=== PATIENT | female | born 1955 | race Caucasian/White ===

== ENCOUNTER → 2017-02-03 | Outpatient (CLI) | payer BC ==
[~2017-02-03] MED LIST: ALBU18HF INH; AMIO200T PO; AMIO200T42 PO; AMIT50TA PO; APIX5TAB PO; ASPI1TAB2 PO; ASPI1TAB30 PO; ASPI325T4 PO; BENA20TA2 PO; CLOT15CR6 TP; DIGO125T PO; DIGO250T PO; DILT180C53 PO; DOCU-30 PO; ESTR1TAB15 PO; FLUT16SP NAS; FLUT1DIS3 INH; FLUT9.9S NAS; FURO-92 PO; FURO40TA6 PO; HYDR-3138 PO; HYDR-3240 PO; IBUP200T64 PO; METO25TA35 PO; METO50TA82 PO; METR500T PO; MULT-6 PO; NITR0.4T SL; OMEP-110 PO; POTA10TA11 PO; POTA20TA14 PO; PRAV40TA2 PO; THEO600T PO; WARF2.5T73 PO; WARF5TAB7 PO
== END | disposition home or self-care (01) ==
LOC: RAD 10:12
PROVIDERS: ATTEND Internal Medicine Cardiovascular Disease
DX: Z95.0 Presence of cardiac pacemaker (principal)
CPT/HCPCS: 71020

== ENCOUNTER → 2017-09-02 | Outpatient (CLI) | payer BC ==
[~2017-09-02] MED LIST changes: +ASPI-691 PO; -ASPI1TAB2 PO; -ASPI1TAB30 PO; +ASPI1TAB31 PO; +ASPI325T17 PO; -ASPI325T4 PO; +DOCU-131 PO; -DOCU-30 PO; -HYDR-3138 PO; +HYDR-3237 PO; +REGADENOSON 0.4 MG/5 ML SYRINGE ONE
== END | disposition home or self-care (01) ==
LOC: CFH 12:36
PROVIDERS: ATTEND Physician Assistant Medical
DX: I25.5 Ischemic cardiomyopathy (principal); I10 Essential (primary) hypertension; I25.10 Atherosclerotic heart disease of native coronary artery without angina pectoris; J45.909 Unspecified asthma, uncomplicated; Z95.5 Presence of coronary angioplasty implant and graft
CPT/HCPCS: 78452; 93017; A9502; J2785

== ENCOUNTER 2017-09-06 10:03 | Day surgery (SDC) | payer BC ==
[~2017-09-06] VITALS: Ht 177.8 cm; Wt 82.0 kg
[~2017-09-06 10:03] MED LIST changes: -REGADENOSON 0.4 MG/5 ML SYRINGE ONE
[2017-09-06] MEDS ORDERED: SODIUM CHLORIDE 0.9% 1,000 ML IV ONE (10:29)
[2017-09-06 10:47] VITALS: BP 114/59
[2017-09-06 10:48] LABS: HEMATOCRIT 39.2 % (34.6-47.8); HEMOGLOBIN 13.4 g/dL (11.7-16.4)
[2017-09-06 10:53] LABS: BLOOD UREA NITROGEN 16 mg/dL (7-18)
[2017-09-06] MEDS ORDERED: PLEASE ENTER HEIGHT AND WEIGHT MC SCH (11:00)
[2017-09-06] MEDS ORDERED: MIDAZOLAM 1 MG/ML, 5ML ONE (12:17)
[2017-09-06] MEDS ORDERED: TICAGRELOR 90 MG TABLET ONE (12:17)
[2017-09-06] MEDS ORDERED: VERAPAMIL 2.5 MG/ML, 2ML ONE (12:17)
[2017-09-06] MEDS ORDERED: NITROGLYCERIN 5 MG/ML, 10ML ONE (12:17)
[2017-09-06] MEDS ORDERED: FENTANYL PF 100 MCG/2ML ONE (12:17)
[2017-09-06] MEDS ORDERED: BIVALIRUDIN 250 MG ONE (12:18)
[2017-09-06] MEDS ORDERED: LIDOCAINE 2%, 20ML ONE (12:18)
[2017-09-06] MEDS ORDERED: HEPARIN 1,000 UNITS/ML, 10ML ONE (12:18)
[2017-09-06] MEDS ORDERED: SODIUM CHLORIDE 0.9% 1,000 ML IV SCH (14:02)
== END 2017-09-06 16:24 | disposition home or self-care (01) ==
LOC: CACL 10:03
PROVIDERS: ATTEND Internal Medicine Cardiovascular Disease
DX: I20.0 Unstable angina (principal); I10 Essential (primary) hypertension; Z91.030 Bee allergy status; Z91.018 Allergy to other foods
CPT/HCPCS: 36415; 80048; 85025; 93458; 99156; C1769; C1894; J1644; J2250; J3010; J3490; Q9967; J0583

== ENCOUNTER 2017-09-20 08:22 | Emergency (ER) | payer BC ==
[~2017-09-20] VITALS: Ht 177.8 cm; Wt 83.0 kg
[2017-09-20 09:46] LABS: HEMATOCRIT 39.6 % (34.6-47.8); HEMOGLOBIN 13.4 g/dL (11.7-16.4); WHITE BLOOD COUNT 7.5 x10^3/uL (3.4-10)
[2017-09-20 09:59] LABS: BLOOD UREA NITROGEN 23 mg/dL (7-18)
[2017-09-20 10:06] LABS: ASPARTATE AMINO TRANSFERASE 12 U/L (15-37)
[2017-09-20 10:07] LABS: IS PT STATUS REG ER OR PRE ER? YES
[2017-09-20] MEDS ORDERED: PROPOFOL 10 MG/ML, 20ML ONE (11:37)
[2017-09-20 12:56] VITALS: BP 110/46
[2017-09-20] MEDS ORDERED: PROPOFOL 10 MG/ML, 20ML IVPush ONE (13:00)
== END 2017-09-20 13:15 | disposition home or self-care (01) ==
LOC: ED 09:57
DX: I48.2 Chronic atrial fibrillation (principal); E03.9 Hypothyroidism, unspecified; Z95.0 Presence of cardiac pacemaker
CPT/HCPCS: 36415; 71010; 80053; 83735; 84484; 85025; 85610; 85730; 92960; 93005; 99152; 99153; 99285; J2704

== ENCOUNTER → 2018-04-03 | Outpatient (CLI) | payer OTHER ==
[~2018-04-03] MED LIST changes: +WARF-36 PO; -WARF5TAB7 PO
== END | disposition home or self-care (01) ==
LOC: CFH 09:56
PROVIDERS: ATTEND Physician Assistant
DX: M41.9 Scoliosis, unspecified (principal); R06.02 Shortness of breath
CPT/HCPCS: 71046

== ENCOUNTER → 2018-11-23 | Outpatient (CLI) | payer OTHER ==
[~2018-11-23] MED LIST changes: -BENA20TA2 PO; +BENA20TA54 PO; +WARF2.5T32 PO; -WARF2.5T73 PO
== END | disposition home or self-care (01) ==
LOC: CFH 12:57
PROVIDERS: ATTEND Nurse Practitioner
DX: I51.7 Cardiomegaly (principal); R91.8 Other nonspecific abnormal finding of lung field; I70.0 Atherosclerosis of aorta; M85.88 Other specified disorders of bone density and structure, other site; M47.816 Spondylosis without myelopathy or radiculopathy, lumbar region; M43.24 Fusion of spine, thoracic region; Z95.0 Presence of cardiac pacemaker
CPT/HCPCS: 71250

== ENCOUNTER 2019-01-16 08:46 | Inpatient (IN) | payer OTHER ==
[~2019-01-16] VITALS: Ht 177.8 cm; Wt 75.6 kg
[~2019-01-16 08:46] MED LIST changes: -ALBU8.5H8 INH; -ATOR40TA78 PO; -LEVO75TA5 PO
[2019-01-16] MEDS ORDERED: METOPROLOL 1 MG/ML, 5ML IVPush ONE (09:30)
[2019-01-16] MEDS ORDERED: SODIUM CHLORIDE FLUSH 10ML SYR IVF ONE (09:30)
[2019-01-16] MEDS ORDERED: METOPROLOL 1 MG/ML, 5ML ONE (09:40)
--- NOTE | 2019-01-16 09:46 | NUR ---
CXR AT THE BEDSIDE.
[2019-01-16 10:08] LABS: BASOPHILS # (AUTO) 0.05 x10^3/uL (0-0.1); BASOPHILS % (AUTO) 1 % (0-1); EOSINOPHILS # (AUTO) 0.78 x10^3/uL (0-0.4); EOSINOPHILS % (AUTO) 10 % (1-7); LYMPHOCYTES % (AUTO) 16 % (22-44); MD NO; MEAN CORPUSCULAR HEMOGLOBIN 27.7 pg (27.0-34.8); MEAN CORPUSCULAR HGB CONC 31.5 g/dL (32.4-35.8); MEAN CORPUSCULAR VOLUME 87.9 fL (80-100); MEAN PLATELET VOLUME 10.5 fL (7.4-10.4); MONOCYTES # (AUTO) 0.56 x10^3/uL (0.2-0.8); MONOCYTES % (AUTO) 7 % (2-9); NEUTROPHILS # (AUTO) 5.25 x10^3/uL (1.8-6.8); NEUTROPHILS % (AUTO) 66 % (42-75); PLATELET COUNT 175 x10^3/uL (130-400); RED BLOOD COUNT 4.59 x10^6/uL (3.82-5.3); RED CELL DISTRIBUTION WIDTH 15.3 % (9.6-15.2)
--- NOTE | 2019-01-16 10:08 | NUR ---
pt resting comfortably on an e.r. gurney while awaiting the results of diagnostic screening. vs are stable amidst beta hilary. i will contionue to monitor and treat as oredered, as well as prn while awaiting further orders.
[2019-01-16 10:25] LABS: ALBUMIN 3.8 g/dL (3.4-5.0); ANION GAP 8 mmol/L (5-15); CALCIUM 9.7 mg/dL (8.5-10.1); CHLORIDE 111 mmol/L (98-107)
[2019-01-16 10:27] LABS: ALANINE AMINOTRANSFERASE 66 U/L (12-78); CREATININE 1.42 mg/dL (0.55-1.02); TROPONIN I 0.051 ng/mL (0.000-0.045)
[2019-01-16 10:50] LABS: ALKALINE PHOSPHATASE 239 U/L (45-117); BILIRUBIN,TOTAL 0.8 mg/dL (0.2-1.0); TOTAL PROTEIN 6.9 g/dL (6.4-8.2)
[2019-01-16] MEDS ORDERED: FUROSEMIDE 40 MG/4 ML IV ONE (11:00)
--- NOTE | 2019-01-16 11:04 | NUR ---
verbal sbar report was exchanged w danny pandya) on the floor for admission. we will begin to prepare for transport at this time.
[2019-01-16 11:20] VITALS: BP 103/73
[2019-01-16 11:32] LABS: FREE T4 (FREE THYROXINE) 1.42 ng/dL (0.76-1.46)
[2019-01-16] MEDS ORDERED: ALBU8.5H8 INH (11:36)
[2019-01-16] MEDS ORDERED: DIGO125T PO (11:36)
[2019-01-16] MEDS ORDERED: ATOR40TA78 PO (11:36)
[2019-01-16] MEDS ORDERED: LEVO75TA5 PO (11:36)
[2019-01-16 12:30] VITALS: BP 102/68
[2019-01-16] MEDS ORDERED: LABETALOL 5MG/ML, 20ML IVPush PRN (14:00)
[2019-01-16] MEDS ORDERED: ASA/APAP/ CAFFEINE TABLET PO PRN (14:00)
[2019-01-16] MEDS ORDERED: NITROGLYCERIN 0.4 MG BOTTLE (25 TABS) SL PRN ×2 (14:00)
[2019-01-16] MEDS ORDERED: ACETAMINOPHEN 325 MG TABLET PO PRN (14:00)
[2019-01-16] MEDS ORDERED: DOCUSATE 100 MG CAPSULE PO PRN (14:00)
[2019-01-16] MEDS ORDERED: ALBUTEROL SULFATE 2.5 MG/3 ML HHN PRN (14:30)
[2019-01-16] MEDS ORDERED: HEPARIN 5,000 UNITS/ML, 1ML IV ONE (15:00)
[2019-01-16] MEDS ORDERED: ALBUTEROL SULFATE 2.5 MG/3 ML NPPB PRN (15:00)
[2019-01-16] MEDS ORDERED: HEPARIN 5,000 UNITS/ML, 1ML IV PRN (15:00)
[2019-01-16 15:09] LABS: TROPONIN I 0.057 ng/mL (0.000-0.045)
[2019-01-16 15:45] VITALS: BP_SYST 93; BP_SYST 96; BP_DIAS 68; BP_DIAS 71
[2019-01-16] MEDS: FUROSEMIDE 20 MG/2 ML IV SCH (16:07)
[2019-01-16] MEDS ORDERED: FUROSEMIDE 40 MG/4 ML IV SCH (17:00)
[2019-01-16 18:04] VITALS: BP 97/67
[2019-01-16] MEDS: HEPARIN 25,000 UNITS/500ML PMX 500 ML IV PRN (18:25)
[2019-01-16 20:06] VITALS: BP 100/55
[2019-01-16 20:06] LABS: TROPONIN I 0.057 ng/mL (0.000-0.045)
[2019-01-16] MEDS: CLOTRIM/BETAMETH 1%/0.05% CRM TP SCH (21:00)
[2019-01-16] MEDS ORDERED: APIXABAN 5 MG TABLET PO SCH (21:00)
[2019-01-16] MEDS ORDERED: ONDANSETRON ODT 4 MG PO ONE (21:00)
[2019-01-16] MEDS ORDERED: METOPROLOL TARTRATE 25 MG TABLET PO SCH (21:00)
[2019-01-16] MEDS: ATORVASTATIN 40 MG TABLET PO SCH (21:03)
[2019-01-16] MEDS: AMITRIPTYLINE 50 MG TABLET PO SCH (21:03)
[2019-01-17 00:36] VITALS: BP 155/80
[2019-01-17 00:39] VITALS: BP 116/79
[2019-01-17 01:59] LABS: TROPONIN I 0.046 ng/mL (0.000-0.045)
[2019-01-17 05:29] LABS: MEAN CORPUSCULAR HEMOGLOBIN 28.8 pg (27.0-34.8); MEAN CORPUSCULAR HGB CONC 33.2 g/dL (32.4-35.8); MEAN CORPUSCULAR VOLUME 86.8 fL (80-100); MEAN PLATELET VOLUME 10.1 fL (7.4-10.4); PLATELET COUNT 148 x10^3/uL (130-400); RED CELL DISTRIBUTION WIDTH 15.4 % (9.6-15.2)
[2019-01-17 05:32] LABS: ALBUMIN 3.1 g/dL (3.4-5.0); ANION GAP 8 mmol/L (5-15); CALCIUM 8.5 mg/dL (8.5-10.1); CHLORIDE 112 mmol/L (98-107)
[2019-01-17 05:35] LABS: ALANINE AMINOTRANSFERASE 48 U/L (12-78); ALKALINE PHOSPHATASE 187 U/L (45-117); BILIRUBIN,TOTAL 0.8 mg/dL (0.2-1.0); CREATININE 1.08 mg/dL (0.55-1.02); TOTAL PROTEIN 5.7 g/dL (6.4-8.2)
[2019-01-17] MEDS: LEVOTHYROXINE 100 MCG TABLET PO SCH (05:43)
[2019-01-17 07:10] VITALS: BP 98/55
[2019-01-17] MEDS: CARVEDILOL 6.25 MG TABLET PO SCH ×2 (07:30→17:35)
[2019-01-17 07:44] LABS: BASOPHILS # (AUTO) 0.07 x10^3/uL (0-0.1); BASOPHILS % (AUTO) 1 % (0-1); EOSINOPHILS # (AUTO) 0.92 x10^3/uL (0-0.4); EOSINOPHILS % (AUTO) 16 % (1-7); LYMPHOCYTES % (AUTO) 25 % (22-44); MD SCAN; MONOCYTES % (AUTO) 9 % (2-9); NEUTROPHILS # (AUTO) 2.96 x10^3/uL (1.8-6.8); NEUTROPHILS % (AUTO) 50 % (42-75)
[2019-01-17] MEDS: FLUTICASONE NASAL SPRAY 16GM NAS SCH (08:40)
[2019-01-17] MEDS: MULTIVITAMIN 1 TABLET PO SCH (08:40)
[2019-01-17] MEDS: OMEPRAZOLE 20 MG CAPSULE.DR PO SCH (08:40)
[2019-01-17] MEDS: FUROSEMIDE 20 MG/2 ML IV SCH ×2 (08:40→17:36)
[2019-01-17] MEDS: CLOTRIM/BETAMETH 1%/0.05% CRM TP SCH ×2 (08:41→23:24)
[2019-01-17] MEDS ORDERED: DIGOXIN 0.125 MG TABLET PO SCH (09:00)
[2019-01-17 12:12] VITALS: BP 100/60
[2019-01-17] MEDS ORDERED: DIGOXIN 0.25 MG/ML, 2ML IVPush ONE (13:30)
[2019-01-17] MEDS: POTASSIUM CHLORIDE 20 MEQ TAB.ER.PRT PO SCH (17:35)
[2019-01-17 17:39] VITALS: BP 102/61
[2019-01-17 20:16] VITALS: BP 98/52
[2019-01-17] MEDS: ATORVASTATIN 40 MG TABLET PO SCH (23:25)
[2019-01-17] MEDS: AMITRIPTYLINE 50 MG TABLET PO SCH (23:26)
[2019-01-18] VITALS (7 sets, daily range): BP systolic 97–117; BP diastolic 50–78
[2019-01-18 05:22] LABS: ALANINE AMINOTRANSFERASE 45 U/L (12-78); ALBUMIN 3.1 g/dL (3.4-5.0); ANION GAP 6 mmol/L (5-15); CALCIUM 8.8 mg/dL (8.5-10.1); CHLORIDE 112 mmol/L (98-107)
[2019-01-18 05:25] LABS: ALKALINE PHOSPHATASE 188 U/L (45-117); BILIRUBIN,TOTAL 0.9 mg/dL (0.2-1.0); CREATININE 1.23 mg/dL (0.55-1.02); TOTAL PROTEIN 5.8 g/dL (6.4-8.2)
[2019-01-18] MEDS ORDERED: SODIUM CHLORIDE 0.9% 1,000 ML IV SCH (06:00)
[2019-01-18] MEDS: LEVOTHYROXINE 100 MCG TABLET PO SCH (07:01)
[2019-01-18] MEDS: CARVEDILOL 6.25 MG TABLET PO SCH (07:01)
[2019-01-18] MEDS: POTASSIUM CHLORIDE 20 MEQ TAB.ER.PRT PO SCH ×2 (08:01→18:13)
[2019-01-18] MEDS: FUROSEMIDE 20 MG/2 ML IV SCH ×2 (08:01→18:14)
[2019-01-18] MEDS: MULTIVITAMIN 1 TABLET PO SCH (08:44)
[2019-01-18] MEDS: OMEPRAZOLE 20 MG CAPSULE.DR PO SCH (08:44)
[2019-01-18] MEDS: DIGOXIN 0.25 MG TABLET PO SCH (08:44)
[2019-01-18] MEDS: CLOTRIM/BETAMETH 1%/0.05% CRM TP SCH ×2 (08:45→20:11)
[2019-01-18] MEDS: FLUTICASONE NASAL SPRAY 16GM NAS SCH (08:45)
[2019-01-18] MEDS ORDERED: BIVALIRUDIN 250 MG ONE (14:33)
[2019-01-18] MEDS ORDERED: MIDAZOLAM 1 MG/ML, 5ML ONE (14:33)
[2019-01-18] MEDS ORDERED: FENTANYL PF 100 MCG/2ML ONE (14:33)
[2019-01-18] MEDS ORDERED: VERAPAMIL 2.5 MG/ML, 2ML ONE (14:33)
[2019-01-18] MEDS ORDERED: TICAGRELOR 90 MG TABLET ONE (14:33)
[2019-01-18] MEDS ORDERED: LIDOCAINE 2%, 20ML ONE (14:33)
[2019-01-18] MEDS ORDERED: methylPREDNISolone SOD SUCC 125 MG/2 ML ONE (14:34)
[2019-01-18] MEDS ORDERED: DIPHENHYDRAMINE 50 MG/ML, 1ML ONE (14:34)
[2019-01-18] MEDS: CARVEDILOL 12.5 MG TABLET PO SCH (18:13)
[2019-01-18] MEDS: AMITRIPTYLINE 50 MG TABLET PO SCH (20:10)
[2019-01-18] MEDS: ATORVASTATIN 40 MG TABLET PO SCH (20:10)
[2019-01-18] MEDS: HEPARIN 25,000 UNITS/500ML PMX 500 ML IV PRN (21:39)
[2019-01-19 00:55] VITALS: BP 100/59
[2019-01-19 04:02] LABS: ALBUMIN 3.1 g/dL (3.4-5.0); ANION GAP 6 mmol/L (5-15); CHLORIDE 114 mmol/L (98-107); CREATININE 1.14 mg/dL (0.55-1.02)
[2019-01-19 04:06] LABS: ALANINE AMINOTRANSFERASE 40 U/L (12-78); ALKALINE PHOSPHATASE 178 U/L (45-117); BILIRUBIN,TOTAL 0.6 mg/dL (0.2-1.0); TOTAL PROTEIN 5.6 g/dL (6.4-8.2)
[2019-01-19] MEDS: SODIUM CHLORIDE 0.9% 1,000 ML IV SCH (05:54)
[2019-01-19] MEDS: LEVOTHYROXINE 100 MCG TABLET PO SCH (05:55)
[2019-01-19] MEDS: CARVEDILOL 12.5 MG TABLET PO SCH (05:56)
[2019-01-19] MEDS: CLOTRIM/BETAMETH 1%/0.05% CRM TP SCH ×2 (08:11→22:07)
[2019-01-19] MEDS: FLUTICASONE NASAL SPRAY 16GM NAS SCH (08:11)
[2019-01-19] MEDS: FUROSEMIDE 20 MG/2 ML IV SCH ×2 (08:18→17:18)
[2019-01-19] MEDS: OMEPRAZOLE 20 MG CAPSULE.DR PO SCH (08:19)
[2019-01-19 08:50] VITALS: BP_SYST 104; BP_SYST 184; BP_DIAS 67; BP_DIAS 74
[2019-01-19] MEDS ORDERED: FENTANYL PF 250 MCG/5ML ONE (10:28)
[2019-01-19] MEDS ORDERED: MIDAZOLAM 1 MG/ML, 5ML ONE (10:28)
[2019-01-19] MEDS ORDERED: ACETAMINOPHEN 325 MG TABLET PO PRN (12:00)
[2019-01-19] MEDS: MULTIVITAMIN 1 TABLET PO SCH (12:36)
[2019-01-19] MEDS: SPIRONOLACTONE 25 MG TABLET PO SCH (12:36)
[2019-01-19] MEDS: POTASSIUM CHLORIDE 20 MEQ TAB.ER.PRT PO SCH ×2 (12:36→17:18)
[2019-01-19] MEDS: DIGOXIN 0.25 MG TABLET PO SCH (12:37)
[2019-01-19 13:50] VITALS: BP 101/63
[2019-01-19] MEDS ORDERED: HEPARIN 25,000 UNITS/500ML PMX 500 ML IV PRN (14:00)
[2019-01-19] MEDS: LISINOPRIL 5 MG TABLET PO SCH (14:45)
[2019-01-19 17:50] VITALS: BP 113/74
[2019-01-19] MEDS: CARVEDILOL 6.25 MG TABLET PO SCH (17:54)
[2019-01-19] MEDS: APIXABAN 5 MG TABLET PO SCH (22:06)
[2019-01-19] MEDS: ATORVASTATIN 40 MG TABLET PO SCH (22:07)
[2019-01-19] MEDS: AMITRIPTYLINE 50 MG TABLET PO SCH (22:07)
[2019-01-19 22:12] VITALS: BP 96/58
[2019-01-20 01:12] VITALS: BP 98/60
[2019-01-20] MEDS: SODIUM CHLORIDE 0.9% 1,000 ML IV SCH (01:24)
[2019-01-20 05:20] LABS: ALBUMIN 3.2 g/dL (3.4-5.0); CHLORIDE 110 mmol/L (98-107)
[2019-01-20 05:25] LABS: ALANINE AMINOTRANSFERASE 37 U/L (12-78); ALKALINE PHOSPHATASE 165 U/L (45-117); ANION GAP 7 mmol/L (5-15); BILIRUBIN,TOTAL 1.1 mg/dL (0.2-1.0); CREATININE 1.05 mg/dL (0.55-1.02); TOTAL PROTEIN 5.5 g/dL (6.4-8.2)
[2019-01-20 06:41] VITALS: BP 98/63
[2019-01-20] MEDS: LEVOTHYROXINE 100 MCG TABLET PO SCH (06:42)
[2019-01-20] MEDS: CARVEDILOL 6.25 MG TABLET PO SCH (06:42)
[2019-01-20] MEDS: FLUTICASONE NASAL SPRAY 16GM NAS SCH (08:25)
[2019-01-20] MEDS: APIXABAN 5 MG TABLET PO SCH (08:26)
[2019-01-20] MEDS: SPIRONOLACTONE 25 MG TABLET PO SCH (08:26)
[2019-01-20] MEDS: MULTIVITAMIN 1 TABLET PO SCH (08:26)
[2019-01-20] MEDS: OMEPRAZOLE 20 MG CAPSULE.DR PO SCH (08:26)
[2019-01-20] MEDS: POTASSIUM CHLORIDE 20 MEQ TAB.ER.PRT PO SCH (08:26)
[2019-01-20] MEDS: FUROSEMIDE 20 MG/2 ML IV SCH (08:27)
[2019-01-20] MEDS: LISINOPRIL 5 MG TABLET PO SCH (08:27)
[2019-01-20] MEDS: CLOTRIM/BETAMETH 1%/0.05% CRM TP SCH (08:30)
[2019-01-20 10:46] VITALS: BP 89/62
[2019-01-20] MEDS ORDERED: FURO40TA6 PO (10:52)
[2019-01-20] MEDS ORDERED: LISI5TAB7 PO (10:52)
[2019-01-20] MEDS ORDERED: CARV3.12 PO (10:52)
[2019-01-20] MEDS ORDERED: SPIR25TA PO (11:05)
[2019-01-20] MEDS ORDERED: LEVO100T PO (11:12)
== END 2019-01-20 12:51 | disposition home or self-care (01) | DRG 273 ==
LOC: ED 09:51 → EDIP 10:44 → 5SO 11:15
PROVIDERS: ADMIT Hospitalist; ATTEND Hospitalist
PROC: B2111ZZ Fluoroscopy of Multiple Coronary Arteries using Low Osmolar Contrast (ICD-10-PCS; 2019-01-18)
PROC: B2151ZZ Fluoroscopy of Left Heart using Low Osmolar Contrast (ICD-10-PCS; 2019-01-18)
PROC: 4A023N8 Measurement of Cardiac Sampling and Pressure, Bilateral, Percutaneous Approach (ICD-10-PCS; 2019-01-18)
PROC: 02583ZZ Destruction of Conduction Mechanism, Percutaneous Approach (ICD-10-PCS; principal; 2019-01-19)
DX: I48.2 Chronic atrial fibrillation (principal); I50.23 Acute on chronic systolic (congestive) heart failure; I13.0 Hypertensive heart and chronic kidney disease with heart failure and stage 1 through stage 4 chronic kidney disease, or unspecified chronic kidney disease; K86.1 Other chronic pancreatitis; I48.92 Unspecified atrial flutter; I44.2 Atrioventricular block, complete; I42.9 Cardiomyopathy, unspecified; I95.9 Hypotension, unspecified; E03.9 Hypothyroidism, unspecified; E78.5 Hyperlipidemia, unspecified; I08.3 Combined rheumatic disorders of mitral, aortic and tricuspid valves; I25.10 Atherosclerotic heart disease of native coronary artery without angina pectoris; I25.2 Old myocardial infarction; I27.20 Pulmonary hypertension, unspecified; J45.909 Unspecified asthma, uncomplicated; K21.9 Gastro-esophageal reflux disease without esophagitis; N18.3 Chronic kidney disease, stage 3 (moderate); R09.02 Hypoxemia; Z79.01 Long term (current) use of anticoagulants; Z87.891 Personal history of nicotine dependence; Z95.0 Presence of cardiac pacemaker; Z95.5 Presence of coronary angioplasty implant and graft
CPT/HCPCS: 36415; 93460; 93650; 99285; J3490; 71045; 80053; 80162; 83690; 83735; 83880; 84439; 84443; 84484; 85025; 85520; 93005; 93922; 93970; 96374; 99156; 99157; C1769; C1894; G0378; J0583; J1644; J2250; J3010; C2630; J1160; J1200; J1940; J2930; J7030; Q9967

== ENCOUNTER → 2019-01-16 | Outpatient (CLI) | payer OTHER ==
[~2019-01-16] MED LIST changes: +ALBU8.5H8 INH; +ATOR40TA78 PO; +LEVO75TA5 PO
== END | disposition home or self-care (01) ==
LOC: CFH 07:46
PROVIDERS: ATTEND Nurse Practitioner Family
DX: I08.3 Combined rheumatic disorders of mitral, aortic and tricuspid valves (principal); E78.5 Hyperlipidemia, unspecified; I10 Essential (primary) hypertension; I25.2 Old myocardial infarction; Z87.891 Personal history of nicotine dependence; Z95.0 Presence of cardiac pacemaker
CPT/HCPCS: 93306

== ENCOUNTER 2019-04-23 11:43 | Outpatient (CLI) | payer OTHER | END 2019-04-23 23:59 | disposition home or self-care (01) | LOC: CVU 11:43 | PROVIDERS: ATTEND Internal Medicine Cardiovascular Disease | DX: I08.8 Other rheumatic multiple valve diseases (principal); I10 Essential (primary) hypertension; I25.2 Old myocardial infarction; E78.5 Hyperlipidemia, unspecified; Z72.0 Tobacco use | CPT/HCPCS: 93306 ==

== ENCOUNTER 2019-05-18 08:39 | Outpatient (CLI) | payer OTHER | END 2019-05-18 23:59 | disposition home or self-care (01) | LOC: CFH 08:39 | PROVIDERS: ATTEND Internal Medicine Cardiovascular Disease | DX: I13.0 Hypertensive heart and chronic kidney disease with heart failure and stage 1 through stage 4 chronic kidney disease, or unspecified chronic kidney disease (principal); N18.9 Chronic kidney disease, unspecified; I50.9 Heart failure, unspecified; I08.0 Rheumatic disorders of both mitral and aortic valves; E03.9 Hypothyroidism, unspecified; E78.2 Mixed hyperlipidemia; I24.8 Other forms of acute ischemic heart disease; I25.110 Atherosclerotic heart disease of native coronary artery with unstable angina pectoris; I42.8 Other cardiomyopathies | CPT/HCPCS: 36415; 71046; 80048; 85025; 85610; 85730 ==

== ENCOUNTER 2019-09-21 14:12 | Outpatient (CLI) | payer MEDICARE, OTHER ==
[~2019-09-21 14:12] MED LIST changes: +ACET325T26 PO; +ALBU8.5H8 INH; +ATOR40TA78 PO; +CARV3.12 PO; +CARV6.2512 PO; -FLUT16SP NAS; +FLUT16SP24 NAS; +LEVO100T PO; +LEVO75TA PO; +LEVO75TA5 PO; +LISI5TAB7 PO; +MOME13HF3 INH; -NITR0.4T SL; +NITR0.4T41 SL; +SPIR25TA PO
== END 2019-09-21 23:59 | disposition home or self-care (01) ==
LOC: CFH 14:12
PROVIDERS: ATTEND Internal Medicine Cardiovascular Disease
DX: I08.3 Combined rheumatic disorders of mitral, aortic and tricuspid valves (principal); I11.9 Hypertensive heart disease without heart failure; I42.8 Other cardiomyopathies; E78.5 Hyperlipidemia, unspecified; I25.2 Old myocardial infarction; Z95.818 Presence of other cardiac implants and grafts; Z95.2 Presence of prosthetic heart valve; Z87.891 Personal history of nicotine dependence
CPT/HCPCS: 93306

== ENCOUNTER 2019-10-31 12:08 | Day surgery (SDC) | payer OTHER ==
[~2019-10-31] VITALS: Ht 177.8 cm; Wt 70.0 kg
[2019-10-31 12:53] VITALS: BP 110/51
== END 2019-10-31 14:05 | disposition home or self-care (01) ==
LOC: CACL 12:08
PROVIDERS: ATTEND Internal Medicine Cardiovascular Disease
DX: R06.00 Dyspnea, unspecified (principal); I08.1 Rheumatic disorders of both mitral and tricuspid valves; I48.91 Unspecified atrial fibrillation; I48.92 Unspecified atrial flutter; I42.8 Other cardiomyopathies; Z88.8 Allergy status to other drugs, medicaments and biological substances; Z91.030 Bee allergy status; Z91.013 Allergy to seafood; Z95.810 Presence of automatic (implantable) cardiac defibrillator
CPT/HCPCS: 93312; 93321; 93325

== ENCOUNTER → 2019-12-17 | Outpatient (CLI) | payer OTHER ==
[~2019-12-17] VITALS: Ht 177.8 cm; Wt 70.5 kg
[~2019-12-17] MED LIST changes: -DIGO125T PO; +DIGO125T85 PO; -DIGO250T PO; +DIGO250T3 PO; +SACU1TAB PEG; +SPIR25TA5 PO
[2019-12-17 11:42] LABS: MICROSCOPIC NOT IND
[2019-12-17 11:45] LABS: BASOPHILS # (AUTO) 0.03 x10^3/uL (0-0.1); BASOPHILS % (AUTO) 1 % (0-1); EOSINOPHILS # (AUTO) 0.45 x10^3/uL (0-0.4); EOSINOPHILS % (AUTO) 7 % (1-7); LYMPHOCYTES # (AUTO) 1.64 x10^3/uL (1-3.4); LYMPHOCYTES % (AUTO) 27 % (22-44); MD NO; MEAN CORPUSCULAR VOLUME 96.8 fL (80-100); MEAN PLATELET VOLUME 9.6 fL (7.4-10.4); MONOCYTES # (AUTO) 0.43 x10^3/uL (0.2-0.8); MONOCYTES % (AUTO) 7 % (2-9); NEUTROPHILS # (AUTO) 3.59 x10^3/uL (1.8-6.8); NEUTROPHILS % (AUTO) 59 % (42-75); PLATELET COUNT 151 x10^3/uL (130-400); RED BLOOD COUNT 4.05 x10^6/uL (3.82-5.3); RED CELL DISTRIBUTION WIDTH 13.7 % (9.6-15.2)
[2019-12-17 11:57] LABS: CULTURE INDICATED? NO
[2019-12-17 12:02] LABS: INTERNATIONAL NORMALIZED RATIO 1.02 (0.93-1.1); PROTHROMBIN TIME 10.8 Seconds (9.6-11.5)
[2019-12-17 12:04] LABS: ALANINE AMINOTRANSFERASE 20 U/L (12-78); ALBUMIN 3.7 g/dL (3.4-5.0); ANION GAP 4 mmol/L (5-15); CALCIUM 8.8 mg/dL (8.5-10.1); CHLORIDE 107 mmol/L (98-107); CREATININE 1.69 mg/dL (0.55-1.02)
[2019-12-17 12:06] LABS: ALKALINE PHOSPHATASE 124 U/L (45-117); BILIRUBIN,TOTAL 0.5 mg/dL (0.2-1.0); TOTAL PROTEIN 7.1 g/dL (6.4-8.2)
== END | disposition home or self-care (01) ==
LOC: STAR 08:00 → EDSTATUS 12-18 07:30
PROVIDERS: ATTEND Thoracic Surgery (Cardiothoracic Vascular Surgery)
DX: Z01.818 Encounter for other preprocedural examination (principal); I65.23 Occlusion and stenosis of bilateral carotid arteries
CPT/HCPCS: 36415; 71046; 80053; 81003; 83036; 85025; 85610; 85730; 86850; 86900; 86923; 93005; 93880

== ENCOUNTER 2020-01-15 04:44 | Inpatient (IN) | payer OTHER ==
[2020-01-15] VITALS (13 sets, daily range): BP systolic 95–116; BP diastolic 58–70
[~2020-01-15] VITALS: Ht 177.8 cm; Wt 86.2 kg
[2020-01-15] MEDS ORDERED: FENTANYL PF 250 MCG/5ML ONE ×5 (06:20→10:32)
[2020-01-15] MEDS ORDERED: MIDAZOLAM 10MG/2 ML ONE (06:20)
[2020-01-15] MEDS: MUPIROCIN OINT 2%, 22GM TP SCH ×2 (06:21→21:00)
[2020-01-15] MEDS ORDERED: CALCIUM CHLORIDE 10%, 10ML SYR ONE ×2 (06:21→12:51)
[2020-01-15] MEDS ORDERED: DO NOT GIVE MC SCH (06:30)
[2020-01-15] MEDS ORDERED: CHLORHEXIDINE 15 ML UDC MM SCH (06:30)
[2020-01-15] MEDS ORDERED: INSULIN LISPRO 100 UNITS/ML, PEN SQ-INSULIN SCH (06:30)
[2020-01-15] MEDS ORDERED: VASOPRESSIN 20 UNIT in SODIUM CHLORIDE 0.9% 99 ML IV PRN (07:25)
[2020-01-15] MEDS ORDERED: REGULAR INSULIN 100 UNITS in SODIUM CHLORIDE 0.9% 99 ML IV PRN ×2 (07:25→07:30)
[2020-01-15] MEDS ORDERED: NITROGLYCERIN/D5W PMX 250 ML IV PRN (07:25)
[2020-01-15] MEDS ORDERED: DOBUTAMINE 250 MG in SODIUM CHLORIDE 0.9% 230 ML IV PRN (07:25)
[2020-01-15] MEDS ORDERED: DEXMEDETOMIDINE 200 MCG in SODIUM CHLORIDE 0.9% 48 ML IV PRN ×2 (07:25→07:30)
[2020-01-15] MEDS ORDERED: PHENYLEPHRINE 50 MG in SODIUM CHLORIDE 0.9% 245 ML IV PRN ×2 (07:25→07:30)
[2020-01-15] MEDS ORDERED: SODIUM CHLORIDE 0.9% 1,000 ML IV PRN (07:25)
[2020-01-15] MEDS ORDERED: ALBUMIN HUMAN 5% 500 ML IV PRN (07:30)
[2020-01-15] MEDS ORDERED: MIDAZOLAM 1 MG/ML, 5ML IVPush PRN (07:30)
[2020-01-15] MEDS ORDERED: BISACODYL 10 MG SUPP PR PRN (07:30)
[2020-01-15] MEDS ORDERED: DEXTROSE 4 GM TAB.CHEW PO PRN (07:30)
[2020-01-15] MEDS ORDERED: LACTATED RINGERS 1,000 ML IV PRN (07:30)
[2020-01-15] MEDS ORDERED: ACETAMINOPHEN 650 MG SUPP PR PRN (07:30)
[2020-01-15] MEDS ORDERED: PROCHLORPERAZINE 5 MG/ML, 2ML IVPush PRN (07:30)
[2020-01-15] MEDS ORDERED: GLUCAGON 1 MG IM PRN (07:30)
[2020-01-15] MEDS ORDERED: POTASSIUM CHLORIDE 80 MEQ, SODIUM BICARBONATE 8.4% 10 MEQ, MAGNESIUM SULFATE 0.5 GM, LI... IV PRN (07:30)
[2020-01-15] MEDS ORDERED: SODIUM BICARB 8.4%, 50ML SYRINGE IV PRN (07:30)
[2020-01-15] MEDS ORDERED: EPINEPHRINE 5 MG in SODIUM CHLORIDE 0.9% 245 ML IV PRN (07:30)
[2020-01-15] MEDS ORDERED: MANNITOL PMX 20% 500 ML IVPB PRN (07:30)
[2020-01-15] MEDS ORDERED: INSULIN REGULAR 100 UNITS/ML, 3ML VIAL IVPush PRN (07:30)
[2020-01-15] MEDS ORDERED: OXYcodone IR 5MG TABLET PO PRN (07:30)
[2020-01-15] MEDS ORDERED: DEXTROSE 50%, 50ML SYRINGE IVPush PRN (07:30)
[2020-01-15] MEDS ORDERED: BISACODYL 5 MG EC TABLET PO PRN (07:30)
[2020-01-15] MEDS: KSCALE TO 4.5 IV SCH ×3 (07:30→19:04)
[2020-01-15] MEDS ORDERED: CEFUROXIME 1.5 GM in SODIUM CHLORIDE 0.9% 50 ML IVPB PRN (07:30)
[2020-01-15] MEDS ORDERED: ONDANSETRON 2MG/ML, 2ML IVPush PRN (07:30)
[2020-01-15] MEDS ORDERED: PROTAMINE SULFATE 10 MG/ML, 25ML ONE ×2 (08:52→08:53)
[2020-01-15] MEDS ORDERED: ROCURONIUM 10MG/ML,5ML ONE ×3 (08:53→10:52)
[2020-01-15] MEDS ORDERED: PROPOFOL 10 MG/ML, 20ML ONE (08:53)
[2020-01-15] MEDS ORDERED: AMINOCAPROIC ACID 250 MG/ML, 20ML ONE ×3 (08:53→11:39)
[2020-01-15] MEDS: MUPIROCIN OINT 2%, 22GM NAS SCH ×2 (09:00→21:10)
[2020-01-15] MEDS: DOCUSATE 100 MG CAPSULE PO SCH ×2 (09:00→21:52)
[2020-01-15] MEDS: INSULIN LISPRO 100 UNITS/ML, PEN SQ-INSULIN SCH ×3 (11:00→21:18)
[2020-01-15] MEDS: SODIUM CHLORIDE FLUSH 10ML SYR IVF SCH ×4 (12:37→21:08)
[2020-01-15 12:58] LABS: GLUCOSE BY BLOOD GAS ANALYZER 60 mg/dL (70-110); HEMOGLOBIN BY BLOOD GAS ANALYZ 13.2 g/dL (14.0-18.0); POTASSIUM BY BLOOD GAS ANALYZR 3.6 mmol/L (3.6-5.5)
[2020-01-15 13:10] LABS: INTERNATIONAL NORMALIZED RATIO 1.58 (0.93-1.1); PROTHROMBIN TIME 16.8 Seconds (9.6-11.5)
[2020-01-15 13:30] LABS: ANION GAP 6 mmol/L (5-15); CALCIUM 8.3 mg/dL (8.5-10.1); CHLORIDE 115 mmol/L (98-107)
[2020-01-15] MEDS ORDERED: CALCIUM CHLORIDE 10%, 10ML SYR IVPush ONE ×2 (13:30→14:30)
[2020-01-15] MEDS ORDERED: POTASSIUM CHLORIDE PMX 100 ML IV ONE (13:30)
[2020-01-15 13:32] LABS: CREATININE 1.31 mg/dL (0.55-1.02)
[2020-01-15] MEDS: MAGNESIUM SULFATE 1 GM in SODIUM CHLORIDE 0.9% 100 ML IVPB SCH (13:35)
[2020-01-15] MEDS ORDERED: SODIUM BICARBONATE 1 MEQ/ML, 50ML VIAL ONE (13:41)
[2020-01-15] MEDS ORDERED: SODIUM BICARB 8.4%, 50ML SYRINGE ONE (13:41)
[2020-01-15] MEDS ORDERED: methylPREDNISolone SOD SUCC 125 MG/2 ML ONE (13:41)
[2020-01-15] MEDS ORDERED: LIDOCAINE 2%, 20ML ONE (13:42)
[2020-01-15] MEDS ORDERED: HEPARIN 1,000 UNITS/ML, 30ML ONE (13:42)
[2020-01-15] MEDS ORDERED: ALBUMIN HUMAN 25% 50 ML ONE (13:42)
[2020-01-15] MEDS ORDERED: CALCIUM CHLORIDE 13.6 MEQ in SODIUM CHLORIDE 0.9% 100 ML IV ONE ×2 (14:00→15:00)
[2020-01-15] MEDS ORDERED: NOVOSEVEN RT (FACTOR VIIA) RECOMB 1,000 MCG IVPush ONE ×2 (14:30→18:30)
[2020-01-15] MEDS ORDERED: WARFARIN 7.5 MG TABLET PO-COUM ONE (18:00)
[2020-01-15] MEDS: FENTANYL PF 100 MCG/2ML IVPush PRN ×2 (18:42→21:49)
[2020-01-15] MEDS: CEFUROXIME 1.5 GM in SODIUM CHLORIDE 0.9% 50 ML IVPB SCH (19:03)
[2020-01-15] MEDS: VANCOMYCIN 1,100 MG in SODIUM CHLORIDE 0.9% 250 ML IVPB SCH (19:45)
[2020-01-15] MEDS: EPINEPHRINE 5 MG in SODIUM CHLORIDE 0.9% 245 ML IV PRN (21:08)
[2020-01-15] MEDS: HYDROcodone/APAP 5/325 TABLET PO PRN (23:07)
[2020-01-15 23:46] LABS: D-DIMER (DIC) 1.37 ug/mlFEU (0.00-0.52); PROTIME 9.7 Seconds (9.6-11.5)
[2020-01-16] MEDS: INSULIN LISPRO 100 UNITS/ML, PEN SQ-INSULIN SCH ×7 (00:01→23:31)
[2020-01-16] MEDS: KSCALE TO 4.5 IV SCH (01:30)
[2020-01-16] MEDS: HYDROcodone/APAP 5/325 TABLET PO PRN (03:25)
[2020-01-16 04:51] LABS: BASOPHILS # (AUTO) 0.01 x10^3/uL (0-0.1); BASOPHILS % (AUTO) 0 % (0-1); EOSINOPHILS % (AUTO) 0 % (1-7); LYMPHOCYTES # (AUTO) 0.72 x10^3/uL (1-3.4); LYMPHOCYTES % (AUTO) 7 % (22-44); MD NO; MEAN CORPUSCULAR HEMOGLOBIN 31.5 pg (27.0-34.8); MEAN CORPUSCULAR HGB CONC 33.4 g/dL (32.4-35.8); MEAN CORPUSCULAR VOLUME 94.3 fL (80-100); MEAN PLATELET VOLUME 8.8 fL (7.4-10.4); MONOCYTES # (AUTO) 1.11 x10^3/uL (0.2-0.8); MONOCYTES % (AUTO) 11 % (2-9); NEUTROPHILS # (AUTO) 8.29 x10^3/uL (1.8-6.8); NEUTROPHILS % (AUTO) 82 % (42-75); PLATELET COUNT 130 x10^3/uL (130-400); RED BLOOD COUNT 2.99 x10^6/uL (3.82-5.3); RED CELL DISTRIBUTION WIDTH 15.4 % (9.6-15.2)
[2020-01-16 05:00] LABS: ALBUMIN 3.1 g/dL (3.4-5.0); ANION GAP 6 mmol/L (5-15); CALCIUM 9.4 mg/dL (8.5-10.1); CHLORIDE 115 mmol/L (98-107)
[2020-01-16 05:01] LABS: CREATININE 1.46 mg/dL (0.55-1.02)
[2020-01-16 05:15] LABS: INTERNATIONAL NORMALIZED RATIO 0.98 (0.93-1.1); PROTHROMBIN TIME 10.4 Seconds (9.6-11.5)
[2020-01-16] MEDS: MAGNESIUM SULFATE 1 GM in SODIUM CHLORIDE 0.9% 100 ML IVPB SCH (06:50)
[2020-01-16] MEDS ORDERED: VANCOMYCIN 1,200 MG in SODIUM CHLORIDE 0.9% 250 ML IV PRN (07:30)
[2020-01-16] MEDS: HYDROcodone/APAP 10/325 MG TABLET PO PRN ×4 (07:43→21:56)
[2020-01-16] MEDS: CEFUROXIME 1.5 GM in SODIUM CHLORIDE 0.9% 50 ML IVPB SCH (08:59)
[2020-01-16] MEDS: WARFARIN BIOPROSTHETIC VALVE PROTOCOL 2-3 XX SCH (09:00)
[2020-01-16] MEDS ORDERED: FUROSEMIDE 20 MG/2 ML IV SCH (09:00)
[2020-01-16] MEDS: CHLORHEXIDINE 15 ML UDC MM SCH ×2 (09:12→20:19)
[2020-01-16] MEDS: DOCUSATE 100 MG CAPSULE PO SCH ×2 (09:13→20:19)
[2020-01-16] MEDS: ASPIRIN 81 MG TABLET EC PO SCH (09:13)
[2020-01-16] MEDS: OMEPRAZOLE 20 MG CAPSULE.DR PO SCH (09:13)
[2020-01-16] MEDS: MUPIROCIN OINT 2%, 22GM NAS SCH ×2 (09:13→20:20)
[2020-01-16] MEDS: SODIUM CHLORIDE FLUSH 10ML SYR IVF SCH ×2 (09:13→20:27)
[2020-01-16] MEDS: LEVOTHYROXINE 75 MCG TABLET PO SCH (09:15)
[2020-01-16] MEDS: VANCOMYCIN 1,100 MG in SODIUM CHLORIDE 0.9% 250 ML IVPB SCH (09:37)
[2020-01-16] MEDS: WARFARIN MODERAT DOSE PROTOCOL XX SCH (12:00)
[2020-01-16] MEDS: EPINEPHRINE 5 MG in SODIUM CHLORIDE 0.9% 245 ML IV PRN (12:03)
[2020-01-16] MEDS ORDERED: WARFARIN 7.5 MG TABLET PO-COUM ONE (18:00)
[2020-01-16] MEDS: AMITRIPTYLINE 50 MG TABLET PO SCH (20:19)
[2020-01-16] MEDS: ATORVASTATIN 40 MG TABLET PO SCH (20:19)
[2020-01-16] MEDS ORDERED: FUROSEMIDE 40 MG/4 ML IV ONE (23:30)
[2020-01-16] MEDS ORDERED: POTASSIUM CHLORIDE 10% 20 MEQ/15 ML UDC PO ONE (23:30)
[2020-01-17] MEDS: HYDROcodone/APAP 10/325 MG TABLET PO PRN ×3 (01:53→21:35)
[2020-01-17] MEDS: EPINEPHRINE 5 MG in SODIUM CHLORIDE 0.9% 245 ML IV PRN (02:35)
[2020-01-17] MEDS: INSULIN LISPRO 100 UNITS/ML, PEN SQ-INSULIN SCH ×6 (04:42→23:57)
[2020-01-17 04:54] LABS: MEAN CORPUSCULAR HEMOGLOBIN 31.7 pg (27.0-34.8); MEAN CORPUSCULAR HGB CONC 33.7 g/dL (32.4-35.8); MEAN CORPUSCULAR VOLUME 94.1 fL (80-100); RED CELL DISTRIBUTION WIDTH 15.2 % (9.6-15.2)
[2020-01-17 05:00] LABS: INTERNATIONAL NORMALIZED RATIO 1.23 (0.93-1.1); PROTHROMBIN TIME 13.1 Seconds (9.6-11.5)
[2020-01-17 05:03] LABS: ANION GAP 6 mmol/L (5-15); CHLORIDE 109 mmol/L (98-107)
[2020-01-17 06:09] LABS: MEAN PLATELET VOLUME 9.4 fL (7.4-10.4); PLATELET COUNT 101 x10^3/uL (130-400)
[2020-01-17 06:10] LABS: BASOPHILS # (AUTO) 0.02 x10^3/uL (0-0.1); BASOPHILS % (AUTO) 0 % (0-1); EOSINOPHILS # (AUTO) 0.01 x10^3/uL (0-0.4); EOSINOPHILS % (AUTO) 0 % (1-7); LYMPHOCYTES # (AUTO) 0.97 x10^3/uL (1-3.4); LYMPHOCYTES % (AUTO) 8 % (22-44); MD SCAN; MONOCYTES # (AUTO) 0.96 x10^3/uL (0.2-0.8); MONOCYTES % (AUTO) 8 % (2-9); NEUTROPHILS # (AUTO) 10.18 x10^3/uL (1.8-6.8); NEUTROPHILS % (AUTO) 84 % (42-75)
[2020-01-17] MEDS: LEVOTHYROXINE 75 MCG TABLET PO SCH (06:26)
[2020-01-17] MEDS: MAGNESIUM SULFATE 1 GM in SODIUM CHLORIDE 0.9% 100 ML IVPB SCH (06:26)
[2020-01-17] MEDS: POTASSIUM CHLORIDE 20 MEQ TAB.ER.PRT PO SCH (08:34)
[2020-01-17] MEDS: DOCUSATE 100 MG CAPSULE PO SCH ×2 (08:34→21:11)
[2020-01-17] MEDS: OMEPRAZOLE 20 MG CAPSULE.DR PO SCH (08:34)
[2020-01-17] MEDS: ASPIRIN 81 MG TABLET EC PO SCH (08:34)
[2020-01-17] MEDS: FUROSEMIDE 20 MG/2 ML IV SCH ×3 (08:34→21:13)
[2020-01-17] MEDS: CHLORHEXIDINE 15 ML UDC MM SCH ×2 (08:35→21:13)
[2020-01-17] MEDS: MUPIROCIN OINT 2%, 22GM NAS SCH ×2 (08:35→21:13)
[2020-01-17] MEDS: SODIUM CHLORIDE FLUSH 10ML SYR IVF SCH ×2 (08:36→21:37)
[2020-01-17] MEDS: WARFARIN BIOPROSTHETIC VALVE PROTOCOL 2-3 XX SCH (09:00)
[2020-01-17] MEDS: WARFARIN MODERAT DOSE PROTOCOL XX SCH (11:01)
[2020-01-17] MEDS: HYDROcodone/APAP 5/325 TABLET PO PRN (12:12)
[2020-01-17] MEDS ORDERED: WARFARIN 7.5 MG TABLET PO-COUM ONE (18:00)
[2020-01-17] MEDS ORDERED: AMIODARONE 150 MG in DEXTROSE 5% 100 ML IV ONE (20:30)
[2020-01-17] MEDS ORDERED: AMIODARONE 450 MG in DEXTROSE 5% 241 ML IV PRN (20:30)
[2020-01-17] MEDS ORDERED: FILTER 0.22 MICRON IV PRN (20:30)
[2020-01-17] MEDS: ATORVASTATIN 40 MG TABLET PO SCH (21:11)
[2020-01-17] MEDS: AMITRIPTYLINE 50 MG TABLET PO SCH (21:11)
[2020-01-18] MEDS: FUROSEMIDE 20 MG/2 ML IV SCH (02:05)
[2020-01-18 03:45] LABS: MEAN CORPUSCULAR HEMOGLOBIN 31.8 pg (27.0-34.8); MEAN CORPUSCULAR HGB CONC 33.4 g/dL (32.4-35.8); MEAN CORPUSCULAR VOLUME 95.3 fL (80-100); MEAN PLATELET VOLUME 9.5 fL (7.4-10.4); PLATELET COUNT 79 x10^3/uL (130-400); RED BLOOD COUNT 2.77 x10^6/uL (3.82-5.3); RED CELL DISTRIBUTION WIDTH 15.1 % (9.6-15.2)
[2020-01-18 03:52] LABS: INTERNATIONAL NORMALIZED RATIO 2.03 (0.93-1.1); PROTHROMBIN TIME 21.7 Seconds (9.6-11.5)
[2020-01-18 03:54] LABS: ANION GAP 5 mmol/L (5-15); CALCIUM 8.9 mg/dL (8.5-10.1); CHLORIDE 108 mmol/L (98-107); CREATININE 1.06 mg/dL (0.55-1.02)
[2020-01-18] MEDS: INSULIN LISPRO 100 UNITS/ML, PEN SQ-INSULIN SCH ×5 (04:00→20:25)
[2020-01-18 04:09] LABS: BASOPHILS # (AUTO) 0.01 x10^3/uL (0-0.1); BASOPHILS % (AUTO) 0 % (0-1); EOSINOPHILS # (AUTO) 0.01 x10^3/uL (0-0.4); EOSINOPHILS % (AUTO) 0 % (1-7); LYMPHOCYTES % (AUTO) 9 % (22-44); MD SCAN; MONOCYTES % (AUTO) 5 % (2-9); NEUTROPHILS # (AUTO) 7.74 x10^3/uL (1.8-6.8); NEUTROPHILS % (AUTO) 86 % (42-75)
[2020-01-18] MEDS: LEVOTHYROXINE 75 MCG TABLET PO SCH (05:41)
[2020-01-18] MEDS ORDERED: MAGNESIUM HYDROXIDE 8%, 30ML UDC PO PRN (09:00)
[2020-01-18] MEDS: WARFARIN BIOPROSTHETIC VALVE PROTOCOL 2-3 XX SCH (09:00)
[2020-01-18] MEDS ORDERED: POTASSIUM CHLORIDE 20 MEQ TAB.ER.PRT PO ONE (09:00)
[2020-01-18] MEDS: SPIRONOLACTONE 25 MG TABLET PO SCH (09:08)
[2020-01-18] MEDS: POTASSIUM CHLORIDE 20 MEQ TAB.ER.PRT PO SCH (09:09)
[2020-01-18] MEDS: ACETAMINOPHEN 325 MG TABLET PO PRN (09:09)
[2020-01-18] MEDS: ASPIRIN 81 MG TABLET EC PO SCH (09:09)
[2020-01-18] MEDS: OMEPRAZOLE 20 MG CAPSULE.DR PO SCH (09:09)
[2020-01-18] MEDS: AMIODARONE 200 MG TABLET PO SCH (09:09)
[2020-01-18] MEDS: DOCUSATE 100 MG CAPSULE PO SCH (09:10)
[2020-01-18] MEDS: MUPIROCIN OINT 2%, 22GM NAS SCH ×2 (09:10→20:16)
[2020-01-18] MEDS: FUROSEMIDE 40 MG/4 ML IV SCH (09:12)
[2020-01-18] MEDS: KETOROLAC 30 MG/1 ML IM PRN ×3 (09:12→21:04)
[2020-01-18] MEDS: SACUBITRIL/VALSARTAN 24MG-26MG TAB PO SCH ×2 (10:50→20:16)
[2020-01-18] MEDS: WARFARIN MODERAT DOSE PROTOCOL XX SCH (12:00)
[2020-01-18 14:20] VITALS: BP 114/65
[2020-01-18 15:02] VITALS: BP 98/63
[2020-01-18] MEDS: CARVEDILOL 3.125 MG TABLET PO SCH (17:00)
[2020-01-18] MEDS ORDERED: WARFARIN 2.5 MG TABLET PO-COUM ONE (18:00)
[2020-01-18 18:42] VITALS: BP 92/50
[2020-01-18] MEDS: ATORVASTATIN 40 MG TABLET PO SCH (20:16)
[2020-01-18] MEDS: AMITRIPTYLINE 50 MG TABLET PO SCH (20:16)
[2020-01-18] MEDS: SODIUM CHLORIDE FLUSH 10ML SYR IVF SCH (20:16)
[2020-01-19 01:38] VITALS: BP 99/57
[2020-01-19] MEDS: LEVOTHYROXINE 75 MCG TABLET PO SCH (05:31)
[2020-01-19] MEDS: CARVEDILOL 3.125 MG TABLET PO SCH ×2 (05:31→17:41)
[2020-01-19 05:40] LABS: ANION GAP 3 mmol/L (5-15); CALCIUM 8.9 mg/dL (8.5-10.1); CHLORIDE 110 mmol/L (98-107); CREATININE 1.06 mg/dL (0.55-1.02)
[2020-01-19 05:46] LABS: INTERNATIONAL NORMALIZED RATIO 2.06 (0.93-1.1)
[2020-01-19 05:57] LABS: MEAN CORPUSCULAR HEMOGLOBIN 32.1 pg (27.0-34.8); MEAN CORPUSCULAR HGB CONC 33.8 g/dL (32.4-35.8); MEAN CORPUSCULAR VOLUME 94.8 fL (80-100); MEAN PLATELET VOLUME 9.8 fL (7.4-10.4); PLATELET COUNT 98 x10^3/uL (130-400); RED BLOOD COUNT 2.66 x10^6/uL (3.82-5.3); RED CELL DISTRIBUTION WIDTH 14.4 % (9.6-15.2)
[2020-01-19 06:32] LABS: BASOPHILS # (AUTO) 0.02 x10^3/uL (0-0.1); BASOPHILS % (AUTO) 0 % (0-1); EOSINOPHILS # (AUTO) 0.21 x10^3/uL (0-0.4); EOSINOPHILS % (AUTO) 3 % (1-7); LYMPHOCYTES # (AUTO) 0.93 x10^3/uL (1-3.4); LYMPHOCYTES % (AUTO) 15 % (22-44); MD SCAN; MONOCYTES % (AUTO) 9 % (2-9); NEUTROPHILS # (AUTO) 4.65 x10^3/uL (1.8-6.8); NEUTROPHILS % (AUTO) 73 % (42-75)
[2020-01-19 06:54] VITALS: BP 101/56
[2020-01-19] MEDS: FUROSEMIDE 40 MG/4 ML IV SCH ×2 (08:07→20:17)
[2020-01-19] MEDS: POTASSIUM CHLORIDE 20 MEQ TAB.ER.PRT PO SCH (08:07)
[2020-01-19] MEDS: SPIRONOLACTONE 25 MG TABLET PO SCH (08:07)
[2020-01-19] MEDS: KETOROLAC 30 MG/1 ML IM PRN (08:07)
[2020-01-19] MEDS: AMIODARONE 200 MG TABLET PO SCH (08:08)
[2020-01-19] MEDS: MUPIROCIN OINT 2%, 22GM NAS SCH ×2 (08:08→20:18)
[2020-01-19] MEDS: ASPIRIN 81 MG TABLET EC PO SCH (08:08)
[2020-01-19] MEDS: SACUBITRIL/VALSARTAN 24MG-26MG TAB PO SCH ×2 (08:08→20:18)
[2020-01-19] MEDS: SODIUM CHLORIDE FLUSH 10ML SYR IVF SCH ×2 (08:08→20:18)
[2020-01-19] MEDS: OMEPRAZOLE 20 MG CAPSULE.DR PO SCH (08:08)
[2020-01-19] MEDS: DOCUSATE 100 MG CAPSULE PO SCH (08:08)
[2020-01-19] MEDS: WARFARIN BIOPROSTHETIC VALVE PROTOCOL 2-3 XX SCH (08:09)
[2020-01-19] MEDS: WARFARIN MODERAT DOSE PROTOCOL XX SCH (08:09)
[2020-01-19] MEDS: ACETAMINOPHEN 325 MG TABLET PO PRN (13:14)
[2020-01-19 14:50] VITALS: BP 99/59
[2020-01-19] MEDS ORDERED: WARFARIN 3 MG TABLET PO-COUM ONE (18:00)
[2020-01-19 18:56] LABS: MICROSCOPIC AUTO
[2020-01-19 20:14] VITALS: BP 103/70
[2020-01-19] MEDS: ATORVASTATIN 40 MG TABLET PO SCH (20:18)
[2020-01-19] MEDS: AMITRIPTYLINE 50 MG TABLET PO SCH (20:18)
[2020-01-20 00:05] VITALS: BP 95/64
[2020-01-20 05:44] LABS: BASOPHILS # (AUTO) 0.03 x10^3/uL (0-0.1); BASOPHILS % (AUTO) 0 % (0-1); EOSINOPHILS # (AUTO) 0.41 x10^3/uL (0-0.4); EOSINOPHILS % (AUTO) 6 % (1-7); LYMPHOCYTES # (AUTO) 0.96 x10^3/uL (1-3.4); LYMPHOCYTES % (AUTO) 15 % (22-44); MD NO; MEAN CORPUSCULAR HEMOGLOBIN 32.5 pg (27.0-34.8); MEAN CORPUSCULAR HGB CONC 34.1 g/dL (32.4-35.8); MEAN CORPUSCULAR VOLUME 95.2 fL (80-100); MONOCYTES % (AUTO) 11 % (2-9); NEUTROPHILS % (AUTO) 68 % (42-75); PLATELET COUNT 114 x10^3/uL (130-400); RED BLOOD COUNT 2.79 x10^6/uL (3.82-5.3); RED CELL DISTRIBUTION WIDTH 14.7 % (9.6-15.2)
[2020-01-20 05:49] LABS: INTERNATIONAL NORMALIZED RATIO 1.68 (0.93-1.1); PROTHROMBIN TIME 17.9 Seconds (9.6-11.5)
[2020-01-20 05:53] VITALS: BP 101/66
[2020-01-20 05:53] LABS: CHLORIDE 105 mmol/L (98-107)
[2020-01-20] MEDS: CARVEDILOL 3.125 MG TABLET PO SCH ×2 (05:55→17:05)
[2020-01-20] MEDS: LEVOTHYROXINE 75 MCG TABLET PO SCH (05:55)
[2020-01-20 06:02] LABS: ANION GAP 6 mmol/L (5-15); CREATININE 0.91 mg/dL (0.55-1.02)
[2020-01-20 08:19] VITALS: BP 91/58
[2020-01-20] MEDS: WARFARIN BIOPROSTHETIC VALVE PROTOCOL 2-3 XX SCH (09:00)
[2020-01-20] MEDS: FUROSEMIDE 40 MG/4 ML IV SCH (09:20)
[2020-01-20] MEDS: ASPIRIN 81 MG TABLET EC PO SCH (09:21)
[2020-01-20] MEDS: OMEPRAZOLE 20 MG CAPSULE.DR PO SCH (09:21)
[2020-01-20] MEDS: AMIODARONE 200 MG TABLET PO SCH (09:21)
[2020-01-20] MEDS: DOCUSATE 100 MG CAPSULE PO SCH (09:22)
[2020-01-20] MEDS: SPIRONOLACTONE 25 MG TABLET PO SCH (09:22)
[2020-01-20] MEDS: POTASSIUM CHLORIDE 20 MEQ TAB.ER.PRT PO SCH (09:23)
[2020-01-20] MEDS: SODIUM CHLORIDE FLUSH 10ML SYR IVF SCH ×2 (09:23→21:37)
[2020-01-20] MEDS: SACUBITRIL/VALSARTAN 24MG-26MG TAB PO SCH ×2 (09:23→20:26)
[2020-01-20] MEDS: FUROSEMIDE 20 MG/2 ML IV SCH (09:30)
[2020-01-20] MEDS ORDERED: FUROSEMIDE 40 MG/4 ML IV SCH (09:30)
[2020-01-20] MEDS: WARFARIN MODERAT DOSE PROTOCOL XX SCH (12:00)
[2020-01-20 13:40] VITALS: BP 93/64
[2020-01-20] MEDS ORDERED: WARFARIN 5 MG TABLET PO-COUM ONE (18:00)
[2020-01-20 18:55] VITALS: BP 88/55
[2020-01-20] MEDS: AMITRIPTYLINE 50 MG TABLET PO SCH (21:37)
[2020-01-20] MEDS: ATORVASTATIN 40 MG TABLET PO SCH (21:37)
[2020-01-21 02:28] VITALS: BP 97/65
[2020-01-21] MEDS: CARVEDILOL 3.125 MG TABLET PO SCH ×2 (05:13→18:18)
[2020-01-21 05:28] LABS: INTERNATIONAL NORMALIZED RATIO 2.05 (0.93-1.1); PROTHROMBIN TIME 21.9 Seconds (9.6-11.5)
[2020-01-21 05:29] LABS: ANION GAP 4 mmol/L (5-15); CHLORIDE 106 mmol/L (98-107); CREATININE 0.92 mg/dL (0.55-1.02)
[2020-01-21] MEDS: LEVOTHYROXINE 75 MCG TABLET PO SCH (06:17)
[2020-01-21 08:44] VITALS: BP 91/62
[2020-01-21] MEDS: POTASSIUM CHLORIDE 20 MEQ TAB.ER.PRT PO SCH (08:53)
[2020-01-21] MEDS: SACUBITRIL/VALSARTAN 24MG-26MG TAB PO SCH ×2 (08:53→20:38)
[2020-01-21] MEDS: ASPIRIN 81 MG TABLET EC PO SCH (08:53)
[2020-01-21] MEDS: AMIODARONE 200 MG TABLET PO SCH (08:53)
[2020-01-21] MEDS: DOCUSATE 100 MG CAPSULE PO SCH (08:53)
[2020-01-21] MEDS: OMEPRAZOLE 20 MG CAPSULE.DR PO SCH (08:53)
[2020-01-21] MEDS: TAMSULOSIN 0.4 MG CAP.ER.24H PO SCH (08:53)
[2020-01-21] MEDS: SPIRONOLACTONE 25 MG TABLET PO SCH (08:53)
[2020-01-21] MEDS: FUROSEMIDE 20 MG/2 ML IV SCH (08:53)
[2020-01-21] MEDS: SODIUM CHLORIDE FLUSH 10ML SYR IVF SCH ×2 (08:54→20:39)
[2020-01-21] MEDS: WARFARIN BIOPROSTHETIC VALVE PROTOCOL 2-3 XX SCH (09:00)
[2020-01-21] MEDS: WARFARIN MODERAT DOSE PROTOCOL XX SCH (09:33)
[2020-01-21] MEDS ORDERED: WARFARIN 5 MG TABLET PO-COUM ONE ×2 (13:00→18:00)
[2020-01-21 15:10] VITALS: BP 100/61
[2020-01-21 20:16] VITALS: BP 127/76
[2020-01-21] MEDS: AMITRIPTYLINE 50 MG TABLET PO SCH (20:38)
[2020-01-21] MEDS: ATORVASTATIN 40 MG TABLET PO SCH (20:38)
[2020-01-22 01:57] VITALS: BP 96/56
[2020-01-22] MEDS: CARVEDILOL 3.125 MG TABLET PO SCH ×2 (05:46→17:50)
[2020-01-22 06:19] LABS: INTERNATIONAL NORMALIZED RATIO 2.46 (0.93-1.1); PROTHROMBIN TIME 26.3 Seconds (9.6-11.5)
[2020-01-22 06:21] LABS: CHLORIDE 104 mmol/L (98-107)
[2020-01-22 06:25] LABS: ANION GAP 4 mmol/L (5-15); CALCIUM 8.9 mg/dL (8.5-10.1); CREATININE 0.96 mg/dL (0.55-1.02)
[2020-01-22] MEDS: LEVOTHYROXINE 75 MCG TABLET PO SCH (06:31)
[2020-01-22 06:36] VITALS: BP 101/59
[2020-01-22] MEDS ORDERED: CARV3.1212 PO (08:37)
[2020-01-22] MEDS ORDERED: WARF5TAB PO (08:37)
[2020-01-22] MEDS ORDERED: TAMS-11 PO (08:37)
[2020-01-22] MEDS ORDERED: POTA20TA6 PO (08:37)
[2020-01-22] MEDS ORDERED: Warfarin Biopros Vlve Protocol XX (08:37)
[2020-01-22] MEDS ORDERED: TRAM50TA2 PO (08:37)
[2020-01-22] MEDS ORDERED: FURO-92 PO (08:37)
[2020-01-22] MEDS: WARFARIN BIOPROSTHETIC VALVE PROTOCOL 2-3 XX SCH (09:00)
[2020-01-22] MEDS: POTASSIUM CHLORIDE 20 MEQ TAB.ER.PRT PO SCH (09:36)
[2020-01-22] MEDS: SODIUM CHLORIDE FLUSH 10ML SYR IVF SCH (09:37)
[2020-01-22] MEDS: FUROSEMIDE 20 MG/2 ML IV SCH (09:37)
[2020-01-22] MEDS: SPIRONOLACTONE 25 MG TABLET PO SCH (09:37)
[2020-01-22] MEDS: AMIODARONE 200 MG TABLET PO SCH (09:37)
[2020-01-22] MEDS: SACUBITRIL/VALSARTAN 24MG-26MG TAB PO SCH (09:37)
[2020-01-22] MEDS: ASPIRIN 81 MG TABLET EC PO SCH (09:37)
[2020-01-22] MEDS: DOCUSATE 100 MG CAPSULE PO SCH (09:37)
[2020-01-22] MEDS: OMEPRAZOLE 20 MG CAPSULE.DR PO SCH (09:38)
[2020-01-22] MEDS: TAMSULOSIN 0.4 MG CAP.ER.24H PO SCH (09:39)
[2020-01-22] MEDS: WARFARIN MODERAT DOSE PROTOCOL XX SCH (12:00)
[2020-01-22] MEDS ORDERED: AMIO200T42 PO (13:35)
[2020-01-22 17:48] VITALS: BP 97/62
[2020-01-22] MEDS ORDERED: WARFARIN 5 MG TABLET PO-COUM ONE (18:00)
== END 2020-01-22 18:41 | disposition home or self-care (01) | DRG 219 ==
LOC: 5SO 04:44 → CCU 07:31 → 5SO 01-18 12:05
PROVIDERS: ADMIT Thoracic Surgery (Cardiothoracic Vascular Surgery); ATTEND Thoracic Surgery (Cardiothoracic Vascular Surgery)
PROC: 02RG08Z Replacement of Mitral Valve with Zooplastic Tissue, Open Approach (ICD-10-PCS; 2020-01-15)
PROC: 02RF08Z Replacement of Aortic Valve with Zooplastic Tissue, Open Approach (ICD-10-PCS; 2020-01-15)
PROC: 30233K1 Transfusion of Nonautologous Frozen Plasma into Peripheral Vein, Percutaneous Approach (ICD-10-PCS; 2020-01-15)
PROC: 02B70ZK Excision of Left Atrial Appendage, Open Approach (ICD-10-PCS; 2020-01-15)
PROC: 02L70ZK Occlusion of Left Atrial Appendage, Open Approach (ICD-10-PCS; 2020-01-15)
PROC: 30233N1 Transfusion of Nonautologous Red Blood Cells into Peripheral Vein, Percutaneous Approach (ICD-10-PCS; 2020-01-15)
PROC: 30233R1 Transfusion of Nonautologous Platelets into Peripheral Vein, Percutaneous Approach (ICD-10-PCS; 2020-01-15)
PROC: 5A1935Z Respiratory Ventilation, Less than 24 Consecutive Hours (ICD-10-PCS; 2020-01-15)
PROC: 0BH17EZ Insertion of Endotracheal Airway into Trachea, Via Natural or Artificial Opening (ICD-10-PCS; 2020-01-15)
PROC: 5A1221Z Performance of Cardiac Output, Continuous (ICD-10-PCS; 2020-01-15)
PROC: B246ZZ4 Ultrasonography of Right and Left Heart, Transesophageal (ICD-10-PCS; principal; 2020-01-15 07:30)
DX: I08.0 Rheumatic disorders of both mitral and aortic valves (principal); I50.43 Acute on chronic combined systolic (congestive) and diastolic (congestive) heart failure; I42.0 Dilated cardiomyopathy; D62 Acute posthemorrhagic anemia; I48.92 Unspecified atrial flutter; I48.91 Unspecified atrial fibrillation; J45.909 Unspecified asthma, uncomplicated; N18.9 Chronic kidney disease, unspecified; I25.10 Atherosclerotic heart disease of native coronary artery without angina pectoris; D17.9 Benign lipomatous neoplasm, unspecified; F41.9 Anxiety disorder, unspecified; F32.9 Major depressive disorder, single episode, unspecified; I95.9 Hypotension, unspecified; Z98.61 Coronary angioplasty status; Z95.810 Presence of automatic (implantable) cardiac defibrillator
CPT/HCPCS: 36415; 36600; J3490; S0017; 71045; 71046; 80048; 81001; 82040; 82330; 82800; 82803; 82810; 82947; 82962; 83735; 84132; 84295; 85014; 85018; 85025; 85049; 85347; 85379; 85384; 85610; 85730; 86850; 86900; 86923; 87081; 88305; 93005; 93312; 93321; 93325; 94002; 94150; C1768; G0378; J0697; J1644; J1815; J1885; J1940; J2250; J2704; J2720; J3010; J3370; J3475; J3480; J7060; J7189; P9045; P9047; C1760; C1762; J0171; J0282; J2370; J2930; J7050; P9012; P9016; P9017; P9035

== ENCOUNTER 2020-05-10 11:36 | Emergency (ER) | payer OTHER ==
[~2020-05-10] VITALS: Ht 177.8 cm; Wt 72.7 kg
[~2020-05-10 11:36] MED LIST changes: +CARV3.1212 PO; +POTA20TA6 PO; +TAMS-11 PO; +TRAM50TA2 PO; +WARF5TAB2 PO; +Warfarin Biopros Vlve Protocol XX
--- NOTE | 2020-05-10 12:15 | NUR ---
pt to ed c/o incr swelling L arm. had mitral/aortic valve rep then stroke 02/28, d/c home from [facility] 04/02. noticed incr swelling this am. some mottling but per daughter this is normal and usually resolves, 3+ cap refill. pulses dopplered on L side. also c/o pain in L arm. sahm in room for eval, plan for us and labs. a&ox4 gcs 15 stroke scale neg. call [facility] in reach. as
[2020-05-10] MEDS ORDERED: SODIUM CHLORIDE FLUSH 10ML SYR IVF ONE (12:30)
[2020-05-10 12:36] LABS: BASOPHILS # (AUTO) 0.02 x10^3/uL (0-0.1); BASOPHILS % (AUTO) 0 % (0-1); EOSINOPHILS # (AUTO) 1.72 x10^3/uL (0-0.4); EOSINOPHILS % (AUTO) 21 % (1-7); LYMPHOCYTES % (AUTO) 15 % (22-44); MD NO; MEAN CORPUSCULAR HEMOGLOBIN 27.8 pg (27.0-34.8); MEAN CORPUSCULAR VOLUME 86.8 fL (80-100); MEAN PLATELET VOLUME 8.3 fL (7.4-10.4); MONOCYTES # (AUTO) 0.39 x10^3/uL (0.2-0.8); MONOCYTES % (AUTO) 5 % (2-9); NEUTROPHILS # (AUTO) 4.83 x10^3/uL (1.8-6.8); NEUTROPHILS % (AUTO) 59 % (42-75); PLATELET COUNT 244 x10^3/uL (130-400); RED BLOOD COUNT 3.95 x10^6/uL (3.82-5.3); RED CELL DISTRIBUTION WIDTH 19.1 % (9.6-15.2)
[2020-05-10 12:56] VITALS: BP 98/56
--- NOTE | 2020-05-10 12:56 | NUR ---
us in prog. vss. c/o pain in arm will notify md. aguilar. as
[2020-05-10 12:57] LABS: ALANINE AMINOTRANSFERASE 21 U/L (12-78); ALBUMIN 3.3 g/dL (3.4-5.0); ANION GAP 5 mmol/L (5-15); CHLORIDE 107 mmol/L (98-107); CREATININE 1.25 mg/dL (0.55-1.02)
[2020-05-10 13:01] LABS: ALKALINE PHOSPHATASE 153 U/L (45-117); BILIRUBIN,TOTAL 0.4 mg/dL (0.2-1.0); TOTAL PROTEIN 6.9 g/dL (6.4-8.2)
--- NOTE | 2020-05-10 13:13 | NUR ---
resutls neg for blood clot l arm recheck. as
[2020-05-10 14:37] LABS: INTERNATIONAL NORMALIZED RATIO 3.52 (0.93-1.1); PROTHROMBIN TIME 36.7 Seconds (9.6-11.5)
== END 2020-05-10 14:45 | disposition home or self-care (01) ==
LOC: ED 13:10
DX: M79.622 Pain in left upper arm (principal); I48.20 Chronic atrial fibrillation, unspecified; R94.31 Abnormal electrocardiogram [ECG] [EKG]; I10 Essential (primary) hypertension; I48.91 Unspecified atrial fibrillation; I25.2 Old myocardial infarction; E03.9 Hypothyroidism, unspecified; Z95.0 Presence of cardiac pacemaker; Z90.89 Acquired absence of other organs; Z86.73 Personal history of transient ischemic attack (TIA), and cerebral infarction without residual deficits
CPT/HCPCS: 36415; 71045; 80053; 83880; 85025; 85610; 93005; 99285

== ENCOUNTER → 2020-11-04 | Outpatient (CLI) | payer OTHER ==
[~2020-11-04] MED LIST changes: +AMIT100T PO; +CLOT30LO2 EXT; +HYDR-1067 PO; -HYDR-3240 PO; +NITR0.6T4 SL; +SACU1TAB PO; +SERT-331 PO; -THEO600T PO; +THEO600T5 PO; +[UNRECOGNIZED DRUG - OTHER] INJ
== END | disposition home or self-care (01) ==
LOC: CFH 14:44
PROVIDERS: ATTEND Emergency Medicine
DX: S90.31XA Contusion of right foot, initial encounter (principal); M25.571 Pain in right ankle and joints of right foot; R60.9 Edema, unspecified; X58.XXXA Exposure to other specified factors, initial encounter; Y93.89 Activity, other specified; Y92.89 Other specified places as the place of occurrence of the external cause; Y99.8 Other external cause status

== ENCOUNTER 2020-11-06 10:30 | Inpatient (IN) | payer OTHER ==
[~2020-11-06] VITALS: Ht 177.8 cm; Wt 86.5 kg
[~2020-11-06 10:30] MED LIST changes: -AMIT100T PO; -CLOT30LO2 EXT; -NITR0.6T4 SL; -SACU1TAB PO; -SERT-331 PO; -[UNRECOGNIZED DRUG - OTHER] INJ
[2020-11-06] MEDS ORDERED: AMPICILLIN/SULBACTAM 3 GM in SODIUM CHLORIDE 0.9% 100 ML IV ONE (11:30)
[2020-11-06] MEDS ORDERED: OXYcodone/APAP 5/325MG TABLET PO ONE (11:30)
[2020-11-06] MEDS ORDERED: VANCOMYCIN 1,500 MG in SODIUM CHLORIDE 0.9% 250 ML IV ONE (11:30)
[2020-11-06] MEDS ORDERED: DIPH,PERTUSS(ACELL),TET VAC/PF 0.5 ML IM-VACC ONE ×2 (11:30→11:59)
[2020-11-06] MEDS ORDERED: VANCOMYCIN PER PHARMACY MC ONE (11:30)
[2020-11-06] MEDS ORDERED: LIDOCAINE-MPF 1%, 5ML INFIL ONE (11:30)
[2020-11-06] MEDS ORDERED: SODIUM CHLORIDE FLUSH 10ML SYR IVF ONE (11:30)
[2020-11-06] MEDS ORDERED: LIDOCAINE-MPF 1%, 5ML ONE (11:58)
[2020-11-06] MEDS ORDERED: OXYcodone/APAP 5/325MG TABLET ONE (11:59)
[2020-11-06 12:09] LABS: BASOPHILS % (AUTO) 0 % (0-1); EOSINOPHILS % (AUTO) 3 % (1-7); LYMPHOCYTES % (AUTO) 12 % (22-44); MD NO; MEAN CORPUSCULAR HEMOGLOBIN 32.5 pg (27.0-34.8); MEAN PLATELET VOLUME 8.5 fL (7.4-10.4); MONOCYTES % (AUTO) 10 % (2-9); NEUTROPHILS % (AUTO) 76 % (42-75); PLATELET COUNT 205 x10^3/uL (130-400); RED BLOOD COUNT 3.49 x10^6/uL (3.82-5.3); RED CELL DISTRIBUTION WIDTH 14.3 % (9.6-15.2)
[2020-11-06 12:21] LABS: ALANINE AMINOTRANSFERASE 21 U/L (12-78); ALBUMIN 2.9 g/dL (3.4-5.0); ANION GAP 6 mmol/L (5-15); CALCIUM 9.3 mg/dL (8.5-10.1); CHLORIDE 108 mmol/L (98-107); CREATININE 1.01 mg/dL (0.55-1.02); INTERNATIONAL NORMALIZED RATIO 3.46 (0.93-1.1); PROTHROMBIN TIME 36.1 Seconds (9.6-11.5)
[2020-11-06 12:23] LABS: ALKALINE PHOSPHATASE 162 U/L (45-117); BILIRUBIN,TOTAL 0.5 mg/dL (0.2-1.0); TOTAL PROTEIN 6.9 g/dL (6.4-8.2)
--- NOTE | 2020-11-06 13:09 | NUR ---
IN ROOM WITH SVITLANA RUBIO FOR DRAIN OF R ANKLE. PT TOLERATED FAIRLY WELL. PT REQUEST PAIN MEDS.
--- NOTE | 2020-11-06 13:22 | NUR ---
MD Melendez at bedside for pt update. PT educated on NPO
[2020-11-06] MEDS ORDERED: LEVO75TA5 PO (13:25)
[2020-11-06] MEDS ORDERED: AMIT100T PO (13:25)
[2020-11-06] MEDS ORDERED: ALBU8.5H8 INH (13:25)
[2020-11-06] MEDS ORDERED: NITR0.6T4 SL (13:25)
[2020-11-06] MEDS ORDERED: CLOT30LO2 EXT (13:25)
[2020-11-06] MEDS ORDERED: FURO40TA6 PO (13:25)
[2020-11-06] MEDS ORDERED: ATOR40TA78 PO (13:25)
[2020-11-06] MEDS ORDERED: SACU1TAB PO (13:25)
[2020-11-06] MEDS ORDERED: [UNRECOGNIZED DRUG - OTHER] INJ (13:25)
[2020-11-06] MEDS ORDERED: SERT-331 PO (13:25)
[2020-11-06] MEDS ORDERED: CARV3.1212 PO (13:25)
[2020-11-06] MEDS ORDERED: WARF-36 PO (13:25)
[2020-11-06] MEDS ORDERED: HYDROmorphone 2 MG/ML, 1ML IVPush PRN (13:30)
[2020-11-06] MEDS ORDERED: ONDANSETRON 2MG/ML, 2ML IVPush ONE (13:30)
[2020-11-06] MEDS ORDERED: HYDROmorphone 1 MG/ML, 1ML INJ ONE (13:46)
[2020-11-06 14:22] VITALS: BP 105/72
[2020-11-06] MEDS ORDERED: ALBUTEROL HFA 90 MCG/SPRAY INH SCH (14:30)
[2020-11-06] MEDS ORDERED: ENALAPRILAT 1.25 MG/ML, 2ML IVPush PRN (15:00)
[2020-11-06] MEDS ORDERED: ONDANSETRON 2MG/ML, 2ML IVPush PRN ×2 (15:00→19:00)
[2020-11-06] MEDS ORDERED: DIPHENHYDRAMINE 25 MG CAPSULE PO PRN (15:00)
[2020-11-06] MEDS ORDERED: BISACODYL 10 MG SUPP PR PRN (15:00)
[2020-11-06] MEDS ORDERED: ACETAMINOPHEN 325 MG TABLET PO PRN ×2 (15:00→19:00)
[2020-11-06] MEDS ORDERED: GUAIFENESIN/DM 200-20MG, 10ML UDC PO PRN (15:00)
[2020-11-06] MEDS ORDERED: VANCOMYCIN PER PHARMACY MC PRN (15:00)
[2020-11-06] MEDS: HYDROcodone/APAP 5/325 TABLET PO PRN ×2 (15:39→21:28)
[2020-11-06] MEDS: D5%-0.45% NACL 1,000 ML IV SCH (16:04)
[2020-11-06] MEDS ORDERED: PHARMACOKINETIC MONITORING MC PRN (16:30)
[2020-11-06] MEDS ORDERED: VANCOMYCIN 1,800 MG in SODIUM CHLORIDE 0.9% 250 ML IV ONE (16:30)
[2020-11-06] MEDS ORDERED: FENTANYL PF 250 MCG/5ML ONE (17:46)
[2020-11-06] MEDS ORDERED: PROPOFOL 10 MG/ML, 20ML ONE ×2 (18:27)
[2020-11-06] MEDS ORDERED: ACETAMINOPHEN 650 MG/20.3 ML UDC ONE (18:51)
[2020-11-06] MEDS ORDERED: OXYcodone 5 MG/5 ML ORAL.SOL UDC ONE (18:51)
[2020-11-06] MEDS ORDERED: HYDROmorphone 1 MG/ML, 1ML INJ IVPush PRN (19:00)
[2020-11-06] MEDS ORDERED: FENTANYL PF 100 MCG/2ML IV PRN (19:00)
[2020-11-06] MEDS ORDERED: OXYcodone 5 MG/5 ML ORAL.SOL UDC PO PRN (19:30)
[2020-11-06 19:32] VITALS: BP 118/66
[2020-11-06] MEDS: AMPICILLIN/SULBACTAM 3 GM in SODIUM CHLORIDE 0.9% 100 ML IV SCH (20:20)
[2020-11-06] MEDS: ATORVASTATIN 40 MG TABLET PO SCH (21:27)
[2020-11-06] MEDS: CARVEDILOL 3.125 MG TABLET PO SCH (21:28)
[2020-11-06] MEDS: SACUBITRIL/VALSARTAN 24MG-26MG TAB PO SCH (21:28)
[2020-11-06] MEDS: AMITRIPTYLINE 50 MG TABLET PO SCH (22:34)
[2020-11-07] VITALS (8 sets, daily range): BP systolic 93–121; BP diastolic 60–76
[2020-11-07] MEDS: HYDROcodone/APAP 5/325 TABLET PO PRN ×5 (00:08→20:05)
[2020-11-07] MEDS: VANCOMYCIN 1,500 MG in SODIUM CHLORIDE 0.9% 250 ML IV SCH ×2 (00:48→13:37)
[2020-11-07 01:32] LABS: MICROSCOPIC NOT IND
[2020-11-07] MEDS: AMPICILLIN/SULBACTAM 3 GM in SODIUM CHLORIDE 0.9% 100 ML IV SCH ×3 (04:09→19:52)
[2020-11-07 05:46] LABS: BASOPHILS % (AUTO) 0 % (0-1); EOSINOPHILS % (AUTO) 6 % (1-7); LYMPHOCYTES % (AUTO) 18 % (22-44); MD NO; MEAN CORPUSCULAR HEMOGLOBIN 32.8 pg (27.0-34.8); MEAN CORPUSCULAR HGB CONC 33.4 g/dL (32.4-35.8); MEAN PLATELET VOLUME 8.5 fL (7.4-10.4); MONOCYTES % (AUTO) 10 % (2-9); NEUTROPHILS % (AUTO) 66 % (42-75); PLATELET COUNT 191 x10^3/uL (130-400); RED BLOOD COUNT 3.28 x10^6/uL (3.82-5.3); RED CELL DISTRIBUTION WIDTH 14.3 % (9.6-15.2)
[2020-11-07 06:01] LABS: CHLORIDE 109 mmol/L (98-107)
[2020-11-07 06:17] LABS: ANION GAP 8 mmol/L (5-15); CALCIUM 8.6 mg/dL (8.5-10.1); CREATININE 0.99 mg/dL (0.55-1.02)
[2020-11-07] MEDS: CARVEDILOL 3.125 MG TABLET PO SCH ×2 (08:14→20:00)
[2020-11-07] MEDS: SACUBITRIL/VALSARTAN 24MG-26MG TAB PO SCH ×2 (08:14→22:35)
[2020-11-07] MEDS: SERTRALINE 50MG TABLET PO SCH (08:14)
[2020-11-07] MEDS: D5%-0.45% NACL 1,000 ML IV SCH ×2 (08:15→21:50)
[2020-11-07] MEDS: LEVOTHYROXINE 112 MCG TABLET PO SCH (08:15)
[2020-11-07] MEDS ORDERED: LEVOTHYROXINE 75 MCG TABLET PO SCH (09:00)
[2020-11-07] MEDS ORDERED: VANCOMYCIN 1,500 MG in SODIUM CHLORIDE 0.9% 250 ML IV SCH (10:00)
[2020-11-07] MEDS ORDERED: WARFARIN 2.5 MG TABLET PO-COUM ONE (18:00)
[2020-11-07 18:02] LABS: INTERNATIONAL NORMALIZED RATIO 4.56 (0.93-1.1); PROTHROMBIN TIME 47.4 Seconds (9.6-11.5)
[2020-11-07] MEDS: MORPHINE SULFATE 4 MG/ML, 1ML IVPush PRN (21:46)
[2020-11-07] MEDS: ATORVASTATIN 40 MG TABLET PO SCH (21:46)
[2020-11-07] MEDS: AMITRIPTYLINE 50 MG TABLET PO SCH (21:48)
[2020-11-08 01:00] VITALS: BP 108/67
[2020-11-08] MEDS: HYDROcodone/APAP 5/325 TABLET PO PRN ×5 (01:00→21:00)
[2020-11-08] MEDS: VANCOMYCIN 1,500 MG in SODIUM CHLORIDE 0.9% 250 ML IV SCH (01:04)
[2020-11-08] MEDS: AMPICILLIN/SULBACTAM 3 GM in SODIUM CHLORIDE 0.9% 100 ML IV SCH ×2 (03:46→11:42)
[2020-11-08] MEDS: LEVOTHYROXINE 112 MCG TABLET PO SCH (05:08)
[2020-11-08 06:54] LABS: INTERNATIONAL NORMALIZED RATIO 4.04 (0.93-1.1); PROTHROMBIN TIME 42.1 Seconds (9.6-11.5)
[2020-11-08 07:18] LABS: ANION GAP 6 mmol/L (5-15); CALCIUM 8.8 mg/dL (8.5-10.1); CHLORIDE 111 mmol/L (98-107); CREATININE 0.91 mg/dL (0.55-1.02)
[2020-11-08] MEDS ORDERED: LEVOTHYROXINE 75 MCG TABLET PO SCH (07:40)
[2020-11-08 08:40] VITALS: BP 100/64
[2020-11-08] MEDS: SERTRALINE 50MG TABLET PO SCH (08:54)
[2020-11-08 10:28] VITALS: BP 106/59
[2020-11-08] MEDS: SACUBITRIL/VALSARTAN 24MG-26MG TAB PO SCH ×2 (10:35→23:03)
[2020-11-08] MEDS: D5%-0.45% NACL 1,000 ML IV SCH ×2 (10:36→22:38)
[2020-11-08] MEDS: CARVEDILOL 3.125 MG TABLET PO SCH ×2 (10:36→21:00)
[2020-11-08] MEDS ORDERED: CEFAZOLIN 2,000 MG in SODIUM CHLORIDE 0.9% 50 ML IV SCH (12:30)
[2020-11-08 14:52] VITALS: BP 99/64
[2020-11-08 18:20] VITALS: BP 129/76
[2020-11-08] MEDS ORDERED: [UNRECOGNIZED DRUG - OTHER] IVPB SCH (20:30)
[2020-11-08] MEDS: ATORVASTATIN 40 MG TABLET PO SCH (21:00)
[2020-11-08] MEDS: CEFAZOLIN PMX 2GM/50ML 50 ML IVPB SCH (21:00)
[2020-11-08] MEDS: AMITRIPTYLINE 50 MG TABLET PO SCH (21:01)
[2020-11-08 23:00] VITALS: BP 114/73
[2020-11-09 01:01] VITALS: BP 108/65
[2020-11-09] MEDS: HYDROcodone/APAP 5/325 TABLET PO PRN ×4 (01:11→20:20)
[2020-11-09 04:55] LABS: BASOPHILS % (AUTO) 1 % (0-1); EOSINOPHILS % (AUTO) 7 % (1-7); HCT (SEDRATE) 31.4 % (34.6-47.8); LYMPHOCYTES % (AUTO) 22 % (22-44); MEAN CORPUSCULAR HEMOGLOBIN 32.6 pg (27.0-34.8); MEAN CORPUSCULAR HGB CONC 34.6 g/dL (32.4-35.8); MEAN PLATELET VOLUME 8.2 fL (7.4-10.4); MONOCYTES % (AUTO) 8 % (2-9); NEUTROPHILS % (AUTO) 62 % (42-75); PLATELET COUNT 226 x10^3/uL (130-400); RED BLOOD COUNT 3.34 x10^6/uL (3.82-5.3); RED CELL DISTRIBUTION WIDTH 14.3 % (9.6-15.2)
[2020-11-09 04:58] LABS: MD NO
[2020-11-09] MEDS: LEVOTHYROXINE 112 MCG TABLET PO SCH (04:59)
[2020-11-09] MEDS: CEFAZOLIN PMX 2GM/50ML 50 ML IVPB SCH ×3 (04:59→20:19)
[2020-11-09 05:02] LABS: INTERNATIONAL NORMALIZED RATIO 2.79 (0.93-1.1); PROTHROMBIN TIME 29.3 Seconds (9.6-11.5)
[2020-11-09 05:04] LABS: ALBUMIN 2.6 g/dL (3.4-5.0); ANION GAP 3 mmol/L (5-15); CALCIUM 8.6 mg/dL (8.5-10.1); CHLORIDE 113 mmol/L (98-107)
[2020-11-09 05:14] LABS: ALANINE AMINOTRANSFERASE 21 U/L (12-78); ALKALINE PHOSPHATASE 151 U/L (45-117); BILIRUBIN,TOTAL 0.3 mg/dL (0.2-1.0); CREATININE 0.84 mg/dL (0.55-1.02); FREE T4 (FREE THYROXINE) 1.04 ng/dL (0.76-1.46)
[2020-11-09 08:04] VITALS: BP 108/68
[2020-11-09] MEDS: CARVEDILOL 3.125 MG TABLET PO SCH ×2 (08:45→20:18)
[2020-11-09] MEDS: SACUBITRIL/VALSARTAN 24MG-26MG TAB PO SCH ×2 (08:45→20:17)
[2020-11-09] MEDS: SERTRALINE 50MG TABLET PO SCH (08:45)
[2020-11-09] MEDS: D5%-0.45% NACL 1,000 ML IV SCH (08:47)
[2020-11-09] MEDS: POTASSIUM CHLORIDE 20 MEQ TAB.ER.PRT PO SCH (10:42)
[2020-11-09] MEDS: FUROSEMIDE 40 MG TABLET PO SCH (10:42)
[2020-11-09 12:27] VITALS: BP 122/81
[2020-11-09] MEDS ORDERED: WARFARIN 5 MG TABLET PO-COUM ONE (18:00)
[2020-11-09 19:04] VITALS: BP 125/82
[2020-11-09] MEDS: ATORVASTATIN 40 MG TABLET PO SCH (20:18)
[2020-11-09] MEDS: AMITRIPTYLINE 50 MG TABLET PO SCH (20:18)
[2020-11-10] MEDS: D5%-0.45% NACL 1,000 ML IV SCH ×3 (00:34→15:52)
[2020-11-10 01:05] VITALS: BP 101/66
[2020-11-10] MEDS: CEFAZOLIN PMX 2GM/50ML 50 ML IVPB SCH ×2 (04:34→12:50)
[2020-11-10] MEDS: LEVOTHYROXINE 112 MCG TABLET PO SCH (05:13)
[2020-11-10 05:25] LABS: BASOPHILS % (AUTO) 0 % (0-1); EOSINOPHILS % (AUTO) 6 % (1-7); LYMPHOCYTES % (AUTO) 17 % (22-44); MEAN CORPUSCULAR HEMOGLOBIN 32.7 pg (27.0-34.8); MEAN CORPUSCULAR HGB CONC 34.5 g/dL (32.4-35.8); MEAN PLATELET VOLUME 7.9 fL (7.4-10.4); MONOCYTES % (AUTO) 8 % (2-9); NEUTROPHILS % (AUTO) 69 % (42-75); PLATELET COUNT 235 x10^3/uL (130-400); RED BLOOD COUNT 3.44 x10^6/uL (3.82-5.3)
[2020-11-10 05:26] LABS: MD NO
[2020-11-10 05:31] LABS: INTERNATIONAL NORMALIZED RATIO 1.87 (0.93-1.1); PROTHROMBIN TIME 19.8 Seconds (9.6-11.5)
[2020-11-10 05:36] LABS: ALBUMIN 2.8 g/dL (3.4-5.0); ANION GAP 5 mmol/L (5-15); CHLORIDE 109 mmol/L (98-107)
[2020-11-10 05:40] LABS: ALANINE AMINOTRANSFERASE 20 U/L (12-78); ALKALINE PHOSPHATASE 148 U/L (45-117); BILIRUBIN,TOTAL 0.4 mg/dL (0.2-1.0); CREATININE 0.86 mg/dL (0.55-1.02); TOTAL PROTEIN 6.3 g/dL (6.4-8.2)
[2020-11-10 06:54] VITALS: BP 126/73
[2020-11-10] MEDS ORDERED: POTASSIUM CHLORIDE 20 MEQ TAB.ER.PRT PO ONE (07:00)
[2020-11-10] MEDS: POTASSIUM CHLORIDE 20 MEQ TAB.ER.PRT PO SCH (08:00)
[2020-11-10] MEDS: HYDROcodone/APAP 5/325 TABLET PO PRN (09:44)
[2020-11-10] MEDS: CARVEDILOL 3.125 MG TABLET PO SCH ×2 (09:44→22:18)
[2020-11-10] MEDS: SERTRALINE 50MG TABLET PO SCH (09:44)
[2020-11-10] MEDS: FUROSEMIDE 40 MG TABLET PO SCH (09:45)
[2020-11-10] MEDS: MORPHINE SULFATE 4 MG/ML, 1ML IVPush PRN ×2 (09:45→09:53)
[2020-11-10] MEDS: SACUBITRIL/VALSARTAN 24MG-26MG TAB PO SCH ×2 (12:09→22:18)
[2020-11-10 12:45] VITALS: BP 119/72
[2020-11-10] MEDS ORDERED: WARFARIN 5 MG TABLET PO-COUM ONE (18:00)
[2020-11-10] MEDS: ERTAPENEM 1 GM in SODIUM CHLORIDE 0.9% 50 ML IV SCH (18:17)
[2020-11-10 19:00] VITALS: BP 91/61
[2020-11-10] MEDS: ATORVASTATIN 40 MG TABLET PO SCH (22:17)
[2020-11-10] MEDS: AMITRIPTYLINE 50 MG TABLET PO SCH (22:18)
[2020-11-11 02:34] VITALS: BP 95/66
[2020-11-11] MEDS: D5%-0.45% NACL 1,000 ML IV SCH (03:27)
[2020-11-11] MEDS: LEVOTHYROXINE 112 MCG TABLET PO SCH (06:17)
[2020-11-11 06:24] LABS: BASOPHILS % (AUTO) 0 % (0-1); EOSINOPHILS % (AUTO) 7 % (1-7); LYMPHOCYTES % (AUTO) 15 % (22-44); MEAN CORPUSCULAR HEMOGLOBIN 32.2 pg (27.0-34.8); MEAN CORPUSCULAR HGB CONC 34.2 g/dL (32.4-35.8); MEAN PLATELET VOLUME 7.8 fL (7.4-10.4); MONOCYTES % (AUTO) 7 % (2-9); NEUTROPHILS % (AUTO) 71 % (42-75); PLATELET COUNT 227 x10^3/uL (130-400); RED BLOOD COUNT 3.32 x10^6/uL (3.82-5.3)
[2020-11-11 06:33] LABS: ANION GAP 6 mmol/L (5-15); CALCIUM 8.6 mg/dL (8.5-10.1); CHLORIDE 110 mmol/L (98-107); CREATININE 0.78 mg/dL (0.55-1.02); MD NO
[2020-11-11 06:34] LABS: INTERNATIONAL NORMALIZED RATIO 2.41 (0.93-1.1); PROTHROMBIN TIME 25.3 Seconds (9.6-11.5)
[2020-11-11 07:25] VITALS: BP 124/78
[2020-11-11] MEDS ORDERED: POTASSIUM CHLORIDE 20 MEQ TAB.ER.PRT PO SCH (08:00)
[2020-11-11] MEDS: HYDROcodone/APAP 5/325 TABLET PO PRN (08:29)
[2020-11-11] MEDS ORDERED: FUROSEMIDE 40 MG/4 ML IV ONE (08:30)
[2020-11-11] MEDS: SACUBITRIL/VALSARTAN 24MG-26MG TAB PO SCH (09:18)
[2020-11-11] MEDS: SERTRALINE 50MG TABLET PO SCH (09:19)
[2020-11-11] MEDS: CARVEDILOL 3.125 MG TABLET PO SCH (09:19)
[2020-11-11 12:21] VITALS: BP 114/77
[2020-11-11] MEDS ORDERED: HYDR-1067 PO ×3 (13:14→13:15)
[2020-11-11] MEDS ORDERED: LEVO112T2 PO (13:14)
[2020-11-11] MEDS: ERTAPENEM 1 GM in SODIUM CHLORIDE 0.9% 50 ML IV SCH (14:55)
[2020-11-11] MEDS ORDERED: WARFARIN 2 MG TABLET PO-COUM ONE (18:00)
== END 2020-11-11 16:30 | disposition home health service (06) | DRG 571 ==
LOC: ED 12:34 → SUATTDRO 13:04 → 4NW 13:58 → DCLOUNGE 11-11 16:19
PROVIDERS: ADMIT Internal Medicine; ATTEND Hospitalist
PROC: 0JBQ0ZZ Excision of Right Foot Subcutaneous Tissue and Fascia, Open Approach (ICD-10-PCS; principal; 2020-11-06 17:30)
PROC: 0T9B70Z Drainage of Bladder with Drainage Device, Via Natural or Artificial Opening (ICD-10-PCS; 2020-11-07)
DX: L03.115 Cellulitis of right lower limb (principal); I42.9 Cardiomyopathy, unspecified; I48.92 Unspecified atrial flutter; I69.354 Hemiplegia and hemiparesis following cerebral infarction affecting left non-dominant side; K86.1 Other chronic pancreatitis; Z20.822 Contact with and (suspected) exposure to COVID-19; L02.415 Cutaneous abscess of right lower limb; L03.116 Cellulitis of left lower limb; E03.9 Hypothyroidism, unspecified; F32.9 Major depressive disorder, single episode, unspecified; G62.9 Polyneuropathy, unspecified; E66.01 Morbid (severe) obesity due to excess calories; I08.0 Rheumatic disorders of both mitral and aortic valves; I11.0 Hypertensive heart disease with heart failure; I48.0 Paroxysmal atrial fibrillation; I50.9 Heart failure, unspecified; L02.416 Cutaneous abscess of left lower limb; J45.909 Unspecified asthma, uncomplicated; K21.9 Gastro-esophageal reflux disease without esophagitis; I25.2 Old myocardial infarction; Z23 Encounter for immunization; Z79.01 Long term (current) use of anticoagulants; Z82.49 Family history of ischemic heart disease and other diseases of the circulatory system; Z95.0 Presence of cardiac pacemaker; Z95.2 Presence of prosthetic heart valve; Z88.8 Allergy status to other drugs, medicaments and biological substances; Z91.030 Bee allergy status; Z91.013 Allergy to seafood; Z68.27 Body mass index [BMI] 27.0-27.9, adult
CPT/HCPCS: 36415; 36573; 80048; 80053; 80202; 81003; 83036; 83605; 83735; 83880; 84100; 84439; 84443; 85025; 85610; 85651; 86140; 87040; 87070; 87075; 87077; 87176; 87186; 87205; 87635; 90471; 90715; 93306; 96365; 96366; 97162; 99285; G0378; J0295; J0690; J1170; J1335; J1940; J2704; J3010; J3370; C1751; J2270; J7050

== ENCOUNTER 2021-01-20 10:13 | Inpatient (IN) | payer OTHER ==
[~2021-01-20] VITALS: Ht 177.8 cm; Wt 79.7 kg
[~2021-01-20 10:13] MED LIST changes: +AMIT100T PO; +CLOT30LO2 EXT; -HYDR-1067 PO; +HYDR-2214 PO; +LEVO112T2 PO; +NITR0.6T4 SL; +SACU1TAB PO; +SERT-331 PO; +[UNRECOGNIZED DRUG - OTHER] INJ
[2021-01-20] MEDS ORDERED: MORPHINE SULFATE 4 MG/ML, 1ML ONE ×2 (10:55→11:44)
[2021-01-20] MEDS ORDERED: ONDANSETRON 2MG/ML, 2ML ONE (10:55)
[2021-01-20] MEDS ORDERED: ONDANSETRON 2MG/ML, 2ML IVPush ONE (11:00)
[2021-01-20] MEDS ORDERED: SODIUM CHLORIDE FLUSH 10ML SYR IVF ONE (11:00)
[2021-01-20] MEDS: MORPHINE SULFATE 4 MG/ML, 1ML IVPush PRN ×2 (11:18→11:46)
--- NOTE | 2021-01-20 11:21 | NUR ---
PIV EST MEDS PER [facility] AND SENT. PLAN CT. R BACK/HIP PAIN X8 DAYS. DAUGHTER AT BEDSIDE.
[2021-01-20 11:31] LABS: BASOPHILS % (AUTO) 0 % (0-1); EOSINOPHILS % (AUTO) 4 % (1-7); LYMPHOCYTES % (AUTO) 15 % (22-44); MEAN CORPUSCULAR HEMOGLOBIN 31.5 pg (27.0-34.8); MEAN CORPUSCULAR HGB CONC 33.3 g/dL (32.4-35.8); MEAN PLATELET VOLUME 8.9 fL (7.4-10.4); MONOCYTES % (AUTO) 5 % (2-9); NEUTROPHILS % (AUTO) 75 % (42-75); PLATELET COUNT 178 x10^3/uL (130-400); RED BLOOD COUNT 4.43 x10^6/uL (3.82-5.3); RED CELL DISTRIBUTION WIDTH 14.3 % (9.6-15.2)
[2021-01-20 11:37] LABS: MD NO
[2021-01-20 11:40] LABS: ALBUMIN 4.1 g/dL (3.4-5.0); ANION GAP 5 mmol/L (5-15); CHLORIDE 106 mmol/L (98-107); CREATININE 1.22 mg/dL (0.55-1.02)
--- NOTE | 2021-01-20 11:42 | NUR ---
TASK RN: PT AWAITING CT. VSS. REPORTS PAIN DOWN TO 8/10 ON PAIN SCALE.
--- NOTE | 2021-01-20 11:54 | NUR ---
TASK RN: PT TRANSPORTED TO CT.
--- NOTE | 2021-01-20 12:16 | NUR ---
back from ct.as
--- NOTE | 2021-01-20 13:37 | NUR ---
karmen in room to discuss admit. as
--- NOTE | 2021-01-20 13:37 | NUR ---
THE ANTERIOR T9, T10 AND T11 VERTEBRAL BODIES REMAIN FUSED. TRANSVERSE FRACTURE THROUGH THE T10 VERTEBRAL BODY EXTENDING INTO THE SUPERIOR ANTERIOR CORNER OF T11 WITH MILD COMPRESSION OF THE T10 VERTEBRAL BODY AND RESULTANT MILD KYPHOSIS
--- NOTE | 2021-01-20 13:56 | NUR ---
ASSUMED CARE OF PT FROM YULIANA REA.
--- NOTE | 2021-01-20 13:58 | NUR ---
repor to [facility]. as
[2021-01-20] MEDS ORDERED: ACETAMINOPHEN 325 MG TABLET PO PRN (15:00)
[2021-01-20] MEDS ORDERED: hydrALAzine 20 MG/ML, 1ML IVPush PRN (15:00)
--- NOTE | 2021-01-20 15:02 | NUR ---
TASK RN: PER [facility]THO STAFF WILL F/U W/ PT TOMORROW ON FLOOR R/T BACK BRACE.
[2021-01-20 15:20] LABS: BASOPHILS % (AUTO) 0 % (0-1); EOSINOPHILS % (AUTO) 4 % (1-7); LYMPHOCYTES % (AUTO) 20 % (22-44); MEAN CORPUSCULAR HEMOGLOBIN 32.1 pg (27.0-34.8); MEAN CORPUSCULAR HGB CONC 33.6 g/dL (32.4-35.8); MEAN PLATELET VOLUME 9.2 fL (7.4-10.4); MONOCYTES % (AUTO) 7 % (2-9); NEUTROPHILS % (AUTO) 68 % (42-75); PLATELET COUNT 177 x10^3/uL (130-400); RED BLOOD COUNT 4.27 x10^6/uL (3.82-5.3); RED CELL DISTRIBUTION WIDTH 14.1 % (9.6-15.2)
[2021-01-20 15:22] LABS: MD NO
[2021-01-20] MEDS ORDERED: WARFARIN BIOPROSTHETIC VALVE PROTOCOL 2-3 XX PRN (15:30)
[2021-01-20] MEDS ORDERED: ALBUTEROL HFA 90 MCG/SPRAY INH SCH (15:30)
[2021-01-20 16:00] VITALS: BP 119/81
[2021-01-20] MEDS: morphine SULFATE 10 MG/ML, 1ML IVPush PRN ×3 (16:43→21:13)
[2021-01-20 17:35] LABS: INTERNATIONAL NORMALIZED RATIO 4.01 (0.93-1.1); PROTHROMBIN TIME 41.8 Seconds (9.6-11.5)
[2021-01-20] MEDS: CARVEDILOL 3.125 MG TABLET PO SCH (17:49)
[2021-01-20] MEDS ORDERED: SPIR25TA5 PO (18:13)
[2021-01-20] MEDS ORDERED: WARFARIN 2.5 MG TABLET PO-COUM ONE (18:30)
[2021-01-20 19:16] VITALS: BP 110/75
[2021-01-20] MEDS ORDERED: SACUBITRIL/VALSARTAN 24MG-26MG TAB PO SCH (21:00)
[2021-01-20] MEDS: ATORVASTATIN 40 MG TABLET PO SCH (21:17)
[2021-01-21 00:47] VITALS: BP 98/61
[2021-01-21] MEDS: morphine SULFATE 10 MG/ML, 1ML IVPush PRN ×2 (03:27→06:41)
[2021-01-21 05:07] LABS: INTERNATIONAL NORMALIZED RATIO 3.55 (0.93-1.1); PROTHROMBIN TIME 37.1 Seconds (9.6-11.5)
[2021-01-21 05:08] LABS: ALBUMIN 3.6 g/dL (3.4-5.0); ANION GAP 5 mmol/L (5-15); CALCIUM 9.5 mg/dL (8.5-10.1); CHLORIDE 107 mmol/L (98-107)
[2021-01-21 05:11] LABS: CREATININE 1.01 mg/dL (0.55-1.02)
[2021-01-21 05:12] LABS: ALANINE AMINOTRANSFERASE 19 U/L (12-78); ALKALINE PHOSPHATASE 122 U/L (45-117); BILIRUBIN,TOTAL 0.5 mg/dL (0.2-1.0); TOTAL PROTEIN 7.1 g/dL (6.4-8.2)
[2021-01-21] MEDS: LEVOTHYROXINE 112 MCG TABLET PO SCH (06:17)
[2021-01-21] MEDS: CARVEDILOL 3.125 MG TABLET PO SCH ×2 (06:17→18:11)
[2021-01-21 06:52] VITALS: BP 105/67
[2021-01-21 07:27] VITALS: BP 102/68
[2021-01-21] MEDS: POTASSIUM CHLORIDE 20 MEQ TAB.ER.PRT PO SCH (08:38)
[2021-01-21] MEDS: SACUBITRIL/VALSARTAN 24MG-26MG TAB PO SCH (08:39)
[2021-01-21] MEDS: FUROSEMIDE 40 MG TABLET PO SCH (08:39)
[2021-01-21] MEDS: DOCUSATE 100 MG CAPSULE PO PRN ×2 (08:51→21:21)
[2021-01-21] MEDS: HYDROcodone/APAP 5/325 TABLET PO PRN ×3 (08:51→21:21)
[2021-01-21] MEDS: POLYETHYLENE GLYCOL 17 GM PACKET PO PRN (08:51)
[2021-01-21] MEDS: ONDANSETRON 2MG/ML, 2ML IVPush PRN ×3 (08:51→21:21)
[2021-01-21] MEDS: HYDROmorphone 1 MG/ML, 1ML INJ IV PRN ×3 (10:27→22:25)
[2021-01-21 15:34] VITALS: BP 108/67
[2021-01-21] MEDS ORDERED: WARFARIN 1 MG TABLET PO-COUM ONE (18:00)
[2021-01-21 18:12] VITALS: BP 106/60
[2021-01-21] MEDS: CYCLOBENZAPRINE 10 MG TABLET PO PRN (18:21)
[2021-01-21] MEDS: ATORVASTATIN 40 MG TABLET PO SCH (21:21)
[2021-01-22 00:12] VITALS: BP 128/65
[2021-01-22] MEDS: HYDROcodone/APAP 5/325 TABLET PO PRN ×2 (01:39→05:31)
[2021-01-22 05:06] LABS: BASOPHILS % (AUTO) 1 % (0-1); EOSINOPHILS % (AUTO) 4 % (1-7); LYMPHOCYTES % (AUTO) 19 % (22-44); MEAN CORPUSCULAR HEMOGLOBIN 32.5 pg (27.0-34.8); MEAN CORPUSCULAR HGB CONC 34.1 g/dL (32.4-35.8); MONOCYTES % (AUTO) 8 % (2-9); NEUTROPHILS % (AUTO) 69 % (42-75); PLATELET COUNT 177 x10^3/uL (130-400); RED BLOOD COUNT 4.11 x10^6/uL (3.82-5.3); RED CELL DISTRIBUTION WIDTH 14.1 % (9.6-15.2)
[2021-01-22 05:09] LABS: MD NO
[2021-01-22 05:15] LABS: INTERNATIONAL NORMALIZED RATIO 4.39 (0.93-1.1); PROTHROMBIN TIME 45.6 Seconds (9.6-11.5)
[2021-01-22 05:16] LABS: CHLORIDE 103 mmol/L (98-107)
[2021-01-22 05:28] LABS: ALANINE AMINOTRANSFERASE 18 U/L (12-78); ALBUMIN 3.5 g/dL (3.4-5.0); ALKALINE PHOSPHATASE 128 U/L (45-117); ANION GAP 4 mmol/L (5-15); BILIRUBIN,TOTAL 0.5 mg/dL (0.2-1.0); CALCIUM 9.4 mg/dL (8.5-10.1); CREATININE 1.16 mg/dL (0.55-1.02); TOTAL PROTEIN 7.2 g/dL (6.4-8.2)
[2021-01-22] MEDS: LEVOTHYROXINE 112 MCG TABLET PO SCH (05:30)
[2021-01-22] MEDS: CARVEDILOL 3.125 MG TABLET PO SCH ×2 (05:30→17:54)
[2021-01-22] MEDS: CYCLOBENZAPRINE 10 MG TABLET PO PRN ×2 (05:31→10:49)
[2021-01-22] MEDS: POTASSIUM CHLORIDE 20 MEQ TAB.ER.PRT PO SCH (07:29)
[2021-01-22] MEDS: SACUBITRIL/VALSARTAN 24MG-26MG TAB PO SCH (07:29)
[2021-01-22] MEDS: HYDROmorphone 1 MG/ML, 1ML INJ IV PRN ×3 (07:30→18:01)
[2021-01-22] MEDS: FUROSEMIDE 40 MG TABLET PO SCH (07:30)
[2021-01-22 08:13] VITALS: BP 101/68
[2021-01-22] MEDS: DOCUSATE 100 MG CAPSULE PO PRN (10:49)
[2021-01-22] MEDS: POLYETHYLENE GLYCOL 17 GM PACKET PO PRN (10:49)
[2021-01-22 13:12] VITALS: BP 98/64
[2021-01-22] MEDS: OXYcodone IR 5MG TABLET PO PRN (14:49)
[2021-01-22 17:53] VITALS: BP 117/78
[2021-01-22 19:26] VITALS: BP 111/77
[2021-01-22] MEDS: ATORVASTATIN 40 MG TABLET PO SCH (20:49)
[2021-01-23] VITALS (10 sets, daily range): BP systolic 102–128; BP diastolic 67–87
[2021-01-23] MEDS: OXYcodone IR 5MG TABLET PO PRN ×2 (04:06→22:34)
[2021-01-23 05:26] LABS: BASOPHILS % (AUTO) 1 % (0-1); CHLORIDE 102 mmol/L (98-107); EOSINOPHILS % (AUTO) 5 % (1-7); LYMPHOCYTES % (AUTO) 22 % (22-44); MEAN CORPUSCULAR HEMOGLOBIN 32.5 pg (27.0-34.8); MEAN CORPUSCULAR HGB CONC 34.8 g/dL (32.4-35.8); MEAN PLATELET VOLUME 9.1 fL (7.4-10.4); MONOCYTES % (AUTO) 9 % (2-9); NEUTROPHILS % (AUTO) 64 % (42-75); PLATELET COUNT 170 x10^3/uL (130-400); RED BLOOD COUNT 4.22 x10^6/uL (3.82-5.3); RED CELL DISTRIBUTION WIDTH 14.2 % (9.6-15.2)
[2021-01-23 05:28] LABS: MD NO
[2021-01-23 05:29] LABS: INTERNATIONAL NORMALIZED RATIO 3.55 (0.93-1.1); PROTHROMBIN TIME 37.1 Seconds (9.6-11.5)
[2021-01-23 05:32] LABS: ALANINE AMINOTRANSFERASE 25 U/L (12-78); ALBUMIN 3.7 g/dL (3.4-5.0); ALKALINE PHOSPHATASE 131 U/L (45-117); ANION GAP 8 mmol/L (5-15); BILIRUBIN,TOTAL 0.5 mg/dL (0.2-1.0); CALCIUM 9.6 mg/dL (8.5-10.1); CREATININE 0.97 mg/dL (0.55-1.02); TOTAL PROTEIN 7.5 g/dL (6.4-8.2)
[2021-01-23] MEDS: LEVOTHYROXINE 112 MCG TABLET PO SCH (06:00)
[2021-01-23] MEDS: CARVEDILOL 3.125 MG TABLET PO SCH ×2 (06:00→18:48)
[2021-01-23] MEDS: POTASSIUM CHLORIDE 20 MEQ TAB.ER.PRT PO SCH (07:47)
[2021-01-23] MEDS: CYCLOBENZAPRINE 10 MG TABLET PO PRN (09:52)
[2021-01-23] MEDS: FUROSEMIDE 40 MG TABLET PO SCH (09:52)
[2021-01-23] MEDS: ONDANSETRON 2MG/ML, 2ML IVPush PRN ×2 (09:53→16:24)
[2021-01-23] MEDS ORDERED: SCOPOLAMINE 1MG PATCH TD ONE (10:00)
[2021-01-23] MEDS ORDERED: FENTANYL 50 MCG PATCH TD SCH (10:00)
[2021-01-23] MEDS ORDERED: BISACODYL 10 MG SUPP PR ONE ×2 (10:00→16:30)
[2021-01-23] MEDS: SACUBITRIL/VALSARTAN 24MG-26MG TAB PO SCH (12:01)
[2021-01-23] MEDS: HYDROmorphone 1 MG/ML, 1ML INJ IV PRN (16:24)
[2021-01-23] MEDS: ATORVASTATIN 40 MG TABLET PO SCH (20:59)
[2021-01-24] VITALS (7 sets, daily range): BP systolic 92–109; BP diastolic 66–77
[2021-01-24] MEDS: HYDROmorphone 1 MG/ML, 1ML INJ IV PRN (02:33)
[2021-01-24] MEDS: LEVOTHYROXINE 112 MCG TABLET PO SCH (05:28)
[2021-01-24] MEDS: CARVEDILOL 3.125 MG TABLET PO SCH ×2 (05:28→18:27)
[2021-01-24 05:45] LABS: BASOPHILS % (AUTO) 1 % (0-1); EOSINOPHILS % (AUTO) 5 % (1-7); LYMPHOCYTES % (AUTO) 24 % (22-44); MEAN CORPUSCULAR HEMOGLOBIN 32.1 pg (27.0-34.8); MEAN CORPUSCULAR HGB CONC 34.1 g/dL (32.4-35.8); MEAN PLATELET VOLUME 9.1 fL (7.4-10.4); MONOCYTES % (AUTO) 13 % (2-9); NEUTROPHILS % (AUTO) 58 % (42-75); PLATELET COUNT 167 x10^3/uL (130-400); RED BLOOD COUNT 4.35 x10^6/uL (3.82-5.3); RED CELL DISTRIBUTION WIDTH 13.9 % (9.6-15.2)
[2021-01-24 05:47] LABS: MD NO
[2021-01-24 05:55] LABS: CHLORIDE 102 mmol/L (98-107)
[2021-01-24 06:05] LABS: ALANINE AMINOTRANSFERASE 28 U/L (12-78); ALBUMIN 3.5 g/dL (3.4-5.0); ALKALINE PHOSPHATASE 132 U/L (45-117); ANION GAP 8 mmol/L (5-15); BILIRUBIN,TOTAL 0.5 mg/dL (0.2-1.0); CALCIUM 9.7 mg/dL (8.5-10.1); CREATININE 1.14 mg/dL (0.55-1.02); TOTAL PROTEIN 7.1 g/dL (6.4-8.2)
[2021-01-24 06:11] LABS: INTERNATIONAL NORMALIZED RATIO 1.67 (0.93-1.1); PROTHROMBIN TIME 17.7 Seconds (9.6-11.5)
[2021-01-24] MEDS ORDERED: POTASSIUM CHLORIDE 20 MEQ TAB.ER.PRT PO ONE (07:00)
[2021-01-24] MEDS: SACUBITRIL/VALSARTAN 24MG-26MG TAB PO SCH (08:32)
[2021-01-24] MEDS: POTASSIUM CHLORIDE 20 MEQ TAB.ER.PRT PO SCH (08:46)
[2021-01-24] MEDS: ONDANSETRON ODT 4 MG PO PRN (08:46)
[2021-01-24] MEDS ORDERED: WARFARIN BIOPROSTHETIC VALVE PROTOCOL 2-3 XX PRN (12:00)
[2021-01-24] MEDS: FENTANYL REMOVE PATCH NOTE XX SCH (13:08)
[2021-01-24] MEDS: LIDODERM 5% PATCH TD SCH (13:09)
[2021-01-24] MEDS: FENTANYL 75 MCG PATCH TD SCH (13:09)
[2021-01-24] MEDS: OMEPRAZOLE 20 MG CAPSULE.DR PO SCH (13:09)
[2021-01-24] MEDS ORDERED: WARFARIN 2.5 MG TABLET PO-COUM ONE (14:00)
[2021-01-24] MEDS: FUROSEMIDE 40 MG TABLET PO SCH (14:40)
[2021-01-24 14:41] LABS: MICROSCOPIC AUTO
[2021-01-24] MEDS ORDERED: WARFARIN 5 MG TABLET PO-COUM ONE (15:10)
[2021-01-24] MEDS: DOCUSATE 100 MG CAPSULE PO PRN (16:15)
[2021-01-24] MEDS: CYCLOBENZAPRINE 10 MG TABLET PO PRN ×2 (16:15→22:34)
[2021-01-24] MEDS: OXYcodone IR 5MG TABLET PO PRN (20:01)
[2021-01-24] MEDS: ATORVASTATIN 40 MG TABLET PO SCH (21:12)
[2021-01-25] VITALS (8 sets, daily range): BP systolic 97–114; BP diastolic 65–76
[2021-01-25] MEDS: HYDROmorphone 1 MG/ML, 1ML INJ IV PRN ×3 (00:13→20:32)
[2021-01-25] MEDS: OXYcodone IR 5MG TABLET PO PRN (02:11)
[2021-01-25 05:31] LABS: INTERNATIONAL NORMALIZED RATIO 1.33 (0.93-1.1); PROTHROMBIN TIME 14.2 Seconds (9.6-11.5)
[2021-01-25 05:35] LABS: ALBUMIN 3.6 g/dL (3.4-5.0); ANION GAP 7 mmol/L (5-15); BASOPHILS % (AUTO) 1 % (0-1); CALCIUM 9.4 mg/dL (8.5-10.1); CHLORIDE 102 mmol/L (98-107); EOSINOPHILS % (AUTO) 6 % (1-7); LYMPHOCYTES % (AUTO) 20 % (22-44); MD NO; MEAN CORPUSCULAR HEMOGLOBIN 32.3 pg (27.0-34.8); MEAN CORPUSCULAR HGB CONC 34.5 g/dL (32.4-35.8); MEAN PLATELET VOLUME 9.1 fL (7.4-10.4); MONOCYTES % (AUTO) 11 % (2-9); NEUTROPHILS % (AUTO) 63 % (42-75); PLATELET COUNT 166 x10^3/uL (130-400); RED BLOOD COUNT 4.06 x10^6/uL (3.82-5.3); RED CELL DISTRIBUTION WIDTH 14.1 % (9.6-15.2)
[2021-01-25 05:39] LABS: ALANINE AMINOTRANSFERASE 27 U/L (12-78); ALKALINE PHOSPHATASE 132 U/L (45-117); BILIRUBIN,TOTAL 0.6 mg/dL (0.2-1.0); CREATININE 1.19 mg/dL (0.55-1.02); TOTAL PROTEIN 7.1 g/dL (6.4-8.2)
[2021-01-25] MEDS: CARVEDILOL 3.125 MG TABLET PO SCH ×3 (05:56→18:34)
[2021-01-25] MEDS: LEVOTHYROXINE 112 MCG TABLET PO SCH (05:56)
[2021-01-25] MEDS: OMEPRAZOLE 20 MG CAPSULE.DR PO SCH (05:56)
[2021-01-25] MEDS ORDERED: OMEPRAZOLE 20 MG CAPSULE.DR PO SCH (06:00)
[2021-01-25] MEDS: ONDANSETRON 2MG/ML, 2ML IVPush PRN ×2 (09:16→16:12)
[2021-01-25] MEDS: SACUBITRIL/VALSARTAN 24MG-26MG TAB PO SCH (09:36)
[2021-01-25] MEDS: LIDODERM 5% PATCH TD SCH (11:23)
[2021-01-25] MEDS: POTASSIUM CHLORIDE 20 MEQ TAB.ER.PRT PO SCH (11:24)
[2021-01-25] MEDS: DOCUSATE 100 MG CAPSULE PO PRN (16:13)
[2021-01-25] MEDS ORDERED: WARFARIN 5 MG TABLET PO-COUM ONE (18:00)
[2021-01-25] MEDS: CYCLOBENZAPRINE 10 MG TABLET PO PRN (18:34)
[2021-01-25] MEDS: ATORVASTATIN 40 MG TABLET PO SCH (20:31)
[2021-01-25] MEDS: MELATONIN 5 MG TABLET PO PRN (20:35)
[2021-01-26 01:03] VITALS: BP 98/64
[2021-01-26 05:28] VITALS: BP 108/66
[2021-01-26] MEDS: LEVOTHYROXINE 112 MCG TABLET PO SCH (05:35)
[2021-01-26] MEDS: CARVEDILOL 3.125 MG TABLET PO SCH ×2 (05:36→18:24)
[2021-01-26] MEDS: OMEPRAZOLE 20 MG CAPSULE.DR PO SCH (05:36)
[2021-01-26 07:00] VITALS: BP 96/63
[2021-01-26 08:00] LABS: INTERNATIONAL NORMALIZED RATIO 1.38 (0.93-1.1); PROTHROMBIN TIME 14.7 Seconds (9.6-11.5)
[2021-01-26] MEDS: POTASSIUM CHLORIDE 20 MEQ TAB.ER.PRT PO SCH (08:07)
[2021-01-26] MEDS: HYDROmorphone 1 MG/ML, 1ML INJ IV PRN ×4 (08:17→20:59)
[2021-01-26] MEDS: LIDODERM 5% PATCH TD SCH (12:21)
[2021-01-26 12:25] VITALS: BP 98/64
[2021-01-26] MEDS: FUROSEMIDE 40 MG TABLET PO SCH (14:44)
[2021-01-26] MEDS: ONDANSETRON 2MG/ML, 2ML IVPush PRN (14:45)
[2021-01-26] MEDS: OXYcodone IR 5MG TABLET PO PRN (14:45)
[2021-01-26] MEDS: CYCLOBENZAPRINE 10 MG TABLET PO PRN (18:24)
[2021-01-26 19:04] VITALS: BP 106/70
[2021-01-26] MEDS: ATORVASTATIN 40 MG TABLET PO SCH (20:59)
[2021-01-26] MEDS: MELATONIN 5 MG TABLET PO PRN (23:56)
[2021-01-27] VITALS (7 sets, daily range): BP systolic 106–116; BP diastolic 55–76
[2021-01-27] MEDS: HYDROmorphone 1 MG/ML, 1ML INJ IV PRN ×4 (01:24→23:45)
[2021-01-27] MEDS: OMEPRAZOLE 20 MG CAPSULE.DR PO SCH (05:02)
[2021-01-27] MEDS: CARVEDILOL 3.125 MG TABLET PO SCH ×2 (05:03→19:21)
[2021-01-27] MEDS: LEVOTHYROXINE 112 MCG TABLET PO SCH (05:03)
[2021-01-27 06:46] LABS: INTERNATIONAL NORMALIZED RATIO 1.65 (0.93-1.1); PROTHROMBIN TIME 17.5 Seconds (9.6-11.5)
[2021-01-27] MEDS: POTASSIUM CHLORIDE 20 MEQ TAB.ER.PRT PO SCH (09:45)
[2021-01-27] MEDS: OXYcodone IR 5MG TABLET PO PRN (09:45)
[2021-01-27] MEDS: CYCLOBENZAPRINE 10 MG TABLET PO PRN (09:46)
[2021-01-27] MEDS: FUROSEMIDE 40 MG TABLET PO SCH (09:47)
[2021-01-27] MEDS ORDERED: METHOCARBAMOL 500 MG TABLET PO PRN (12:00)
[2021-01-27] MEDS: LIDODERM 5% PATCH TD SCH (12:59)
[2021-01-27] MEDS ORDERED: FLUMAZENIL 0.1 MG/1 ML, 5ML ONE (14:39)
[2021-01-27] MEDS ORDERED: MIDAZOLAM 1 MG/ML, 5ML ONE (14:39)
[2021-01-27] MEDS ORDERED: FENTANYL PF 100 MCG/2ML ONE (14:39)
[2021-01-27] MEDS ORDERED: NALOXONE 1 MG/ML, 2ML ONE (14:39)
[2021-01-27] MEDS ORDERED: LIDOCAINE 1%, 10ML ONE (14:40)
[2021-01-27] MEDS ORDERED: TRIAMCINOLONE ACETONIDE 40 MG/ML, 1ML ONE (14:40)
[2021-01-27] MEDS: FENTANYL REMOVE PATCH NOTE XX SCH (16:40)
[2021-01-27] MEDS: FENTANYL 75 MCG PATCH TD SCH (16:40)
[2021-01-27] MEDS: ONDANSETRON ODT 4 MG PO PRN ×2 (19:35→19:40)
[2021-01-27] MEDS: AMITRIPTYLINE 25 MG TABLET PO SCH (21:10)
[2021-01-27] MEDS: ATORVASTATIN 40 MG TABLET PO SCH (21:10)
[2021-01-27] MEDS: MELATONIN 5 MG TABLET PO PRN (21:10)
[2021-01-27] MEDS: DOCUSATE 100 MG CAPSULE PO PRN (21:10)
[2021-01-28 01:19] VITALS: BP 102/69
[2021-01-28 05:41] LABS: INTERNATIONAL NORMALIZED RATIO 1.61 (0.93-1.1); PROTHROMBIN TIME 17.1 Seconds (9.6-11.5)
[2021-01-28 05:53] VITALS: BP 133/74
[2021-01-28] MEDS: CARVEDILOL 3.125 MG TABLET PO SCH ×2 (05:53→17:29)
[2021-01-28] MEDS: OMEPRAZOLE 20 MG CAPSULE.DR PO SCH (05:53)
[2021-01-28] MEDS: LEVOTHYROXINE 112 MCG TABLET PO SCH (05:54)
[2021-01-28] MEDS: HYDROmorphone 1 MG/ML, 1ML INJ IV PRN ×4 (05:58→22:12)
[2021-01-28 07:19] VITALS: BP 113/71
[2021-01-28] MEDS: ONDANSETRON ODT 4 MG PO PRN ×3 (08:54→20:13)
[2021-01-28] MEDS: FUROSEMIDE 40 MG TABLET PO SCH (08:55)
[2021-01-28] MEDS: POTASSIUM CHLORIDE 20 MEQ TAB.ER.PRT PO SCH (08:55)
[2021-01-28] MEDS: LIDODERM 5% PATCH TD SCH (10:39)
[2021-01-28] MEDS: WARFARIN BIOPROSTHETIC VALVE PROTOCOL 2-3 XX SCH (12:00)
[2021-01-28 12:19] VITALS: BP 103/71
[2021-01-28] MEDS: OXYcodone IR 5MG TABLET PO PRN ×2 (13:40→20:13)
[2021-01-28] MEDS ORDERED: WARFARIN 5 MG TABLET PO-COUM ONE (18:00)
[2021-01-28 18:59] VITALS: BP 111/74
[2021-01-28] MEDS: AMITRIPTYLINE 25 MG TABLET PO SCH (21:21)
[2021-01-28] MEDS: MELATONIN 5 MG TABLET PO PRN (21:21)
[2021-01-28] MEDS: ATORVASTATIN 40 MG TABLET PO SCH (21:21)
[2021-01-28] MEDS ORDERED: HYDROmorphone 2 MG/ML, 1ML ONE (22:06)
[2021-01-29 00:40] VITALS: BP 123/79
[2021-01-29] MEDS: ONDANSETRON 2MG/ML, 2ML IVPush PRN (01:16)
[2021-01-29] MEDS ORDERED: HYDROmorphone 2 MG/ML, 1ML ONE ×2 (02:11→06:00)
[2021-01-29] MEDS: HYDROmorphone 1 MG/ML, 1ML INJ IV PRN ×2 (02:15→06:02)
[2021-01-29 05:31] LABS: INTERNATIONAL NORMALIZED RATIO 1.51 (0.93-1.1)
[2021-01-29 05:50] VITALS: BP 112/67
[2021-01-29] MEDS: LEVOTHYROXINE 112 MCG TABLET PO SCH (05:53)
[2021-01-29] MEDS: CARVEDILOL 3.125 MG TABLET PO SCH ×2 (05:53→17:11)
[2021-01-29] MEDS: OMEPRAZOLE 20 MG CAPSULE.DR PO SCH (05:53)
[2021-01-29 07:03] VITALS: BP 107/67
[2021-01-29 07:26] LABS: ANION GAP 7 mmol/L (5-15); CALCIUM 9.5 mg/dL (8.5-10.1); CHLORIDE 102 mmol/L (98-107); CREATININE 1.19 mg/dL (0.55-1.02)
[2021-01-29] MEDS: POTASSIUM CHLORIDE 20 MEQ TAB.ER.PRT PO SCH (08:00)
[2021-01-29] MEDS: FUROSEMIDE 40 MG TABLET PO SCH (08:14)
[2021-01-29] MEDS: OXYcodone IR 5MG TABLET PO PRN (08:18)
[2021-01-29] MEDS ORDERED: ALBUTEROL SULFATE 2.5 MG/3 ML NPPB PRN (08:30)
[2021-01-29] MEDS ORDERED: MIDAZOLAM 1 MG/ML, 2ML ONE (10:03)
[2021-01-29] MEDS ORDERED: FENTANYL PF 100 MCG/2ML ONE (10:03)
[2021-01-29] MEDS ORDERED: LIDOCAINE 1%, 20ML ONE (10:22)
[2021-01-29] MEDS ORDERED: PROPOFOL 10 MG/ML, 20ML ONE (10:28)
[2021-01-29] MEDS ORDERED: SUCCINYLCHOLINE 20 MG/ML, 10ML ONE (10:28)
[2021-01-29] MEDS ORDERED: DEXAMETHASONE 4 MG/ML, 1ML ONE (10:28)
[2021-01-29] MEDS ORDERED: PHENYLEPHRINE 10 MG/ML ONE (10:28)
[2021-01-29] MEDS ORDERED: ONDANSETRON 2MG/ML, 2ML ONE ×2 (10:28→11:53)
[2021-01-29] MEDS ORDERED: CEFAZOLIN 1,000 MG ONE (10:28)
[2021-01-29] MEDS ORDERED: ROCURONIUM 10 MG/ML,10ML ONE (10:28)
[2021-01-29] MEDS ORDERED: MEPERIDINE/PF 25MG/0.5ML IVPush PRN (10:30)
[2021-01-29] MEDS ORDERED: HYDROmorphone 1 MG/ML, 1ML INJ IVPush PRN (10:30)
[2021-01-29] MEDS ORDERED: PROMETHAZINE 25 MG/ML, 1ML IVPush PRN (10:30)
[2021-01-29] MEDS ORDERED: FENTANYL PF 100 MCG/2ML IV PRN (10:30)
[2021-01-29] MEDS ORDERED: ONDANSETRON 2MG/ML, 2ML IVPush PRN (10:30)
[2021-01-29] MEDS ORDERED: OXYcodone 5 MG/5 ML ORAL.SOL UDC PO PRN (10:30)
[2021-01-29] MEDS ORDERED: HYDROcodone/APAP 7.5-325MG/15ML UDC PO PRN (10:30)
[2021-01-29] MEDS ORDERED: PROMETHAZINE 25 MG/ML, 1ML ONE (12:04)
[2021-01-29 13:08] VITALS: BP_SYST 114; BP_SYST 117; BP_DIAS 67; BP_DIAS 77
[2021-01-29] MEDS: LIDODERM 5% PATCH TD SCH (15:11)
[2021-01-29 18:46] VITALS: BP 111/72
[2021-01-29] MEDS: MELATONIN 5 MG TABLET PO PRN (20:40)
[2021-01-29] MEDS: AMITRIPTYLINE 25 MG TABLET PO SCH (20:40)
[2021-01-29] MEDS: ATORVASTATIN 40 MG TABLET PO SCH (20:40)
[2021-01-30 00:45] VITALS: BP 110/85
[2021-01-30] MEDS: CARVEDILOL 3.125 MG TABLET PO SCH (05:28)
[2021-01-30] MEDS: LEVOTHYROXINE 112 MCG TABLET PO SCH (05:29)
[2021-01-30] MEDS: OMEPRAZOLE 20 MG CAPSULE.DR PO SCH (05:29)
[2021-01-30 05:32] LABS: INTERNATIONAL NORMALIZED RATIO 1.32 (0.93-1.1)
[2021-01-30 07:15] VITALS: BP 112/62
[2021-01-30] MEDS: POTASSIUM CHLORIDE 20 MEQ TAB.ER.PRT PO SCH (07:29)
[2021-01-30] MEDS: FUROSEMIDE 40 MG TABLET PO SCH (09:37)
[2021-01-30] MEDS ORDERED: CYCL10TA2 PO (11:06)
[2021-01-30] MEDS ORDERED: ONDA4TAB13 PO (11:06)
[2021-01-30] MEDS ORDERED: HYDR-3248 PO ×3 (11:06→15:16)
[2021-01-30] MEDS ORDERED: DOCU-131 PO (11:06)
[2021-01-30] MEDS: WARFARIN BIOPROSTHETIC VALVE PROTOCOL 2-3 XX SCH (12:00)
[2021-01-30] MEDS: OXYcodone IR 5MG TABLET PO PRN (12:01)
[2021-01-30] MEDS: ONDANSETRON ODT 4 MG PO PRN (12:02)
[2021-01-30 12:35] VITALS: BP 114/68
[2021-01-30] MEDS: HYDROmorphone 1 MG/ML, 1ML INJ IV PRN (13:08)
== END 2021-01-30 15:05 | disposition home health service (06) | DRG 478 ==
LOC: ED 10:35 → 4NE 14:34 → ED 14:34 → SUATTDRO 14:35 → 4NE 16:00 → 4EST 01-22 13:13 → DCLOUNGE 01-30 14:53
PROVIDERS: ADMIT Internal Medicine; ATTEND Hospitalist
PROC: 3E0S3BZ Introduction of Anesthetic Agent into Epidural Space, Percutaneous Approach (ICD-10-PCS; principal; 2021-01-27)
PROC: 0PB30ZX Excision of Cervical Vertebra, Open Approach, Diagnostic (ICD-10-PCS; 2021-01-29)
PROC: 0PU40JZ Supplement Thoracic Vertebra with Synthetic Substitute, Open Approach (ICD-10-PCS; 2021-01-29)
DX: M51.36 Other intervertebral disc degeneration, lumbar region (principal); I50.42 Chronic combined systolic (congestive) and diastolic (congestive) heart failure; I42.0 Dilated cardiomyopathy; I69.354 Hemiplegia and hemiparesis following cerebral infarction affecting left non-dominant side; N20.0 Calculus of kidney; I48.91 Unspecified atrial fibrillation; M51.37 Other intervertebral disc degeneration, lumbosacral region; I25.5 Ischemic cardiomyopathy; I11.0 Hypertensive heart disease with heart failure; I08.0 Rheumatic disorders of both mitral and aortic valves; E03.9 Hypothyroidism, unspecified; W18.39XA Other fall on same level, initial encounter; I25.10 Atherosclerotic heart disease of native coronary artery without angina pectoris; B95.8 Unspecified staphylococcus as the cause of diseases classified elsewhere; I25.2 Old myocardial infarction; Z95.2 Presence of prosthetic heart valve; Z79.899 Other long term (current) drug therapy; Y93.89 Activity, other specified; Y92.89 Other specified places as the place of occurrence of the external cause; Y99.8 Other external cause status; Z95.4 Presence of other heart-valve replacement
CPT/HCPCS: 36415; 72072; 72100; 99285; J3490; 22510; 62322; 62323; 72128; 72131; 74176; 80048; 80053; 81001; 82040; 83690; 83735; 84100; 85025; 85610; 87086; 87147; 87635; 99156; 99157; G0378; J0690; J1100; J1170; J2250; J2405; J2550; J2704; J3010; J3301; Q0162; C1713; J0330; J2270; J2310; J2370